=== PATIENT | female | born 1970 | race Caucasian/White ===

== ENCOUNTER → 2016-11-21 | Outpatient (REF) | payer MEDICARE ==
[~2016-11-21] MED LIST: /ACET5TA PO; /AMLO25TA PO; /INSUREG SC; /LABE20TA OR; /ONDA4TA PO; /PANT40TA PO; /PREG100CA PO; ACET500C PO; ACET65TA OR; AMLO10TAB PO; ANTI12.5 PO; ASPI81TA45 OR; ASPI81TA7 PO; ASPI81TA85 PO; ATEN100T PO; ATEN25TA OR; ATEN50TA2 PO; ATOR1TAB18 PO; AUGM875T27 PO; BACT800T OR; BIRTH CONTROL PO; CARD240C5 PO; CETI10TA PO; CETI5TA PO; CILO0.3S OU; CIPR-250 PO; CIPR25SS OR; CIPR500T89 PO; CITRPOW2 PO; CLON0.2T PO; CLON0.5T PO; CLONI1TA PO; CLOP75TA2 PO; COLA50CA PO; CYMB60CA3 PO; CYMBALTA PO; DEPA250T3 OR; DILT60TA PO; DOXY100C PO; DULO1CAP2 PO; DULO1CAP3 PO; DULO30CA PO; ESCI10TA2 PO; FEXO180T58 PO; FIORICET OR; FISH1000 PO; FLEXERIL PO; FLOXIN OTIC0.3 % OT; FOLI5CAP OR; FURO20TA2 PO; FURO40TA2 PO; GABA300C3 PO; GERITAB9 PO; GLUC1INJ IJ; GLUC1INJ2 IM; GLUC1KIT; GLUC1KIT SC; HUMA100I3 SC; HUMALOG SC; HYDR-2808 PO; HYDR-4267 PO; HYDR100T PO; HYDR10TAB PO; HYDR25TA6 OR; HYDR50TA7 PO; IMIT100T OR; IMIT100T PO; INSUH10VL SC; INSUHUMDS SC; INSULADS SC; INSULANT SC; IRON CR PO; KLON0.5T PO; LANTINJ4 SC; LEVA250T PO; LEVO200T3 PO; LEVO250T PO; LEVO25TA5 PO; LEVO25TABR PO; LEVO50TA45 PO; LEXA1TAB PO; LISI-542 PO; LISI10TA4 OR; LISI40TA OR; LISI40TAB PO; LOPR50TA PO; LUTERA PO; LYRI150C OR; LYRI150C PO; LYRI75CA OR; MAGN64TASA PO; MECL-68 PO; MECL12.575 PO; MECLAZINE; METO10TA2 OR; METO10TA2 PO; METO5TAB2 OR; MILKSUS5 PO; MIRA0.5T PO; NEUR300C PO; NORCOTAB PO; NORV5TAB PO; NOVOINJ3 SC; OMEP40CA2 PO; ONDA4TAB6 PO; PANT40TA2 PO; PERC5TAB6 PO; PERC7.5T8 PO; PLAV75TA PO; PLAV75TA2 OR; PRAM0.5T4 PO; PRAV40TA PO; PRED10TA PO; PRIL20CA PO; PROT1TAB2 PO; Pramipexole PO; REGL10TA6 PO; REGL5TAB2 PO; SENO8.6T2 PO; SILV1CRE19 TOP; SIMV20TA2 OR; SUCR1SS PO; SUMA100T2 PO; TENO50TA PO; TESS100C PO; TRAZ50TA4 PO; TRAZO50TA PO; TRIA1CR TOP; TYLE325T5 PO; TYLE650T30 PO; UNIT1TAB PO; VITAMIN C PO; ZEST20TA8 PO; ZOCO20TA PO; ZOFR20TA PO; ZOFR4SOL PO; ZOFR4TAB3 PO; ZYRT10TA2 PO; [UNRECOGNIZED DRUG - CODE] OU; [UNRECOGNIZED DRUG - CODE] TOP; [UNRECOGNIZED DRUG - OTHER] PO; [UNRECOGNIZED DRUG - OTHER] PO; humalog SC; novolog SC
[2016-11-21 20:38] LABS: YEAST LIKE CELL URINE AUTO MODERATE
== END ==
LOC: M LAB REF 16:50
PROVIDERS: ATTEND Physician Assistant
DX: N39.0 Urinary tract infection, site not specified (principal)

== ENCOUNTER 2016-12-02 15:47 | Emergency (ER) | payer MEDICARE ==
[~2016-12-02 15:47] MED LIST changes: -PLAV75TA PO; +PLAV75TA38 PO; -PRIL20CA PO; +PRIL20CA9 PO
--- NOTE | 2016-12-02 17:40 | EDDOCDS ---
Nurse's Notes [facility] Name: Kaylee Moseley Age: 46 yrs Sex: Female : 1970 Arrival Date: 12/02/2016 Time: 15:47 Bed TR8 Private MD: Antonio Carrasco Diagnosis: Acute nasopharyngitis [common cold] Presentation: 12/02 15:52 Presenting complaint: Patient states: im just really sick. Patient states she finished hs1 UTI and believes that she doesn't feel right and that the infection is still present. Patient states nauseated and uncomfortable. Adult Sepsis Screening: The patient does not have new or worsening altered mentation. Patient's respiratory rate is less than 22. Systolic blood pressure is greater than 100. Patient has a qSOFA score of 0- Negative Sepsis Screen. Suicide/Homicide risk assessment- the patient denies having any suicidal and/or homicidal ideations and does not present with any other emotional, behavioral or mental health complaints. Status: Patient is not a learning services coordinator or dependent. Transition of care: patient was not received from another setting of care. 15:52 Acuity: CHRISTIANA Level 3 hs1 15:52 Method Of Arrival: Walkin/Carried/Asstd hs1 Triage Assessment: 15:54 General: Appears in no apparent distress, Behavior is appropriate for age, cooperative. hs1 Pain: Denies pain. Location: low back area Pain currently is 0 out of 10 on a pain scale. HIV screening NA for this visit Offered previously. Neurological: Level of Consciousness is awake, alert, Oriented to person, place, time. Respiratory: No deficits noted. Derm: Skin is pink, warm & dry. normal. Historical: - Allergies: no known allergies; - Home Meds: 1. atenolol 100 mg Oral tab 1 tab once daily 2. Neurontin 300 mg Oral cap 2 caps twice a day 3. Plavix 75 mg Oral tab 1 tab once daily 4. Lantus 100 unit/mL Sub-Q soln 30 units at night 5. 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 No barriers to communication noted, The patient speaks fluent Amharic, Speaks appropriately for age. - Family history: Not pertinent. - : The pt / caregiver states he / she is not on anticoagulants. Home medication list is obtained from the patient. - Exposure Risk Screening:: None identified. Screenin:36 Screening information is obtained from the patient. Fall risk: No risks identified. js13 Assistance ADL's: requires no assistance with activities of daily living. Abuse/DV Screen: The patient / caregiver reports he/she is: not in a situation that causes fear, pain or injury. Nutritional screening: No deficits noted. Advance Directives: Currently, there is no health care proxy. home support is adequate. Assessment: 17:36 General: Appears in no apparent distress, comfortable, Behavior is appropriate for age, js13 cooperative. Pain: Denies pain. Neurological: Level of Consciousness is awake, alert. Respiratory: Airway is patent Respiratory effort is even, unlabored, Respiratory pattern is regular, symmetrical. : Urine is clear, Reports burning with urination. Derm: Skin is pink, warm & dry. Vital Signs: 15:50 BP 135 / 77; Pulse 97; Resp 18 S; Temp 99.6(O); Pulse Ox 100% on R/A; Weight 81.65 kg dd6 (R); Height 5 ft. 2 in. (157.48 cm) (R); 17:38 BP 128 / 74; Pulse 84; Resp 22; Pulse Ox 98% on R/A; Pain 0/10; ml6 15:50 Body Mass Index 32.92 (81.65 kg, 157.48 cm) dd6 Vitals: 15:50 Log In Time: December 02, 2016 at 15:48. dd6 ED Course: 15:49 Patient visited by Jarvis Oneil PCA. dd6 15:49 Antonio Carrasco DO is Private Physician. dd6 15:49 Patient moved to Waiting dd6 15:50 Patient moved to Pre RCE dd6 15:54 Triage Initiated hs1 17:07 Patient moved to Triage 3 ar3 17:09 Shon Puckett PA-C is PHCP. cc10 17:09 Daljit Lechuga MD is Attending Physician. cc10 17:10 Patient visited by Shon Puckett PA-C. cc10 17:10 Patient visited by Shon Puckett PA-C. cc10 17:26 Urine Culture Sent. ar3 17:36 The patient / caregiver is instructed regarding the plan of care and ED course. js13 17:36 No IV's were initiated during this patient's visit. No procedures done that require js13 assistance. 17:37 Patient moved to 8 ar3 Point of Care Testing: Blood Glucose: 17:19 Blood Glucose: 138 mg/dL; js13 Urine Dip: 17:35 pH: 5; ; Specific [place]: 1.015; Ketones: Negative; Glucose: Positive; Protein: js13 Positive (++); Leukocytes: Positive (++); Nitrite: Negative ; Blood: Moderate (++); Bilirubin: Negative ; Urobilinogen: Normal Ranges: Order Results: Lab Order: Fingerstick Blood Sugar; SPEC'M 12/02/16 17:18 Test: BEDSIDE GLUCOSE; Value: 138; Range: 70-105; Abnormal: Above high normal; Units: MG/DL; Status: F Outcome: 17:33 Discharge ordered by Provider. cc10 17:38 Discharge Assessment: patient administered narcotics - no. The following High Risk ml6 Discharge criteria are identified: None. Discharged to home ambulatory. Condition: stable. No special radiology studies were completed. Property sent home with patient. :Personal belongings accompany Pt. 17:39 Patient left the ED. ml6 Signatures: Jarvis Oneil, DIAMOND CLEAVER DIAMOND CLEAVER dd6 Lyle Cardoza, RN RN ml6 Lisa Singh, DIAMOND CLEAVER DIAMOND CLEAVER ar3 Kayli Benjamin RN RN hs1 Elida Figueroa RN RN js13 Shon uPckett PARose PAElvaC cc10 MTDD
--- NOTE | 2016-12-02 17:40 | EDDOCDS ---
Physician Documentation [facility] Name: Kaylee Moseley Age: 46 yrs Sex: Female : 1970 Arrival Date: 12/02/2016 Time: 15:47 Bed TR8 Private MD: Antonio Carrasco Disposition: 12/02/16 17:33 Discharged to Home/Self Care. Impression: Acute nasopharyngitis [common cold]. - Condition is Stable. - Discharge Instructions: Upper Respiratory Infection, Adult. - Prescriptions for Guaifenesin- DM 10-100 mg/5 mL Oral Liquid - take 5 milliliter by ORAL route every 4 hours As needed; 100 milliliter. - Medication Reconciliation, Local Pharmacy Hours form. - Follow up: Emergency Department; When: As needed. Follow up: Private Physician; When: Call to arrange an appointment; Reason: Wound/Symptom Recheck, Recheck today's complaints, Continuance of care. - Problem is an ongoing problem. - Symptoms are unchanged. Historical: - Allergies: no known allergies; - Home Meds: 1. atenolol 100 mg Oral tab 1 tab once daily 2. Neurontin 300 mg Oral cap 2 caps twice a day 3. Plavix 75 mg Oral tab 1 tab once daily 4. Lantus 100 unit/mL Sub-Q soln 30 units at night 5. 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 No barriers to communication noted, The patient speaks fluent Serbian, Speaks appropriately for age. - Family history: Not pertinent. - : The pt / caregiver states he / she is not on anticoagulants. Home medication list is obtained from the patient. - Exposure Risk Screening:: None identified. Vital Signs: 12/02 15:50 BP 135 / 77; Pulse 97; Resp 18 S; Temp 99.6(O); Pulse Ox 100% on R/A; Weight 81.65 kg / dd6 180.01 lbs (R); Height 5 ft. 2 in. (157.48 cm) (R); 17:38 BP 128 / 74; Pulse 84; Resp 22; Pulse Ox 98% on R/A; Pain 0/10; ml6 15:50 Body Mass Index 32.92 (81.65 kg, 157.48 cm) dd6 MDM: 17:15 Accucheck ordered. cc10 17:15 Urine Dip ordered. cc10 17:16 Urine Culture Ordered. EDMS 17:27 Fingerstick Blood Sugar Ordered. EDMS 17:29 Fingerstick Blood Sugar Reviewed. cc10 Point of Care Testing: Blood Glucose: 17:19 Blood Glucose: 138 mg/dL; js13 Urine Dip: 17:35 pH: 5; ; Specific [place]: 1.015; Ketones: Negative; Glucose: Positive; Protein: js13 Positive (++); Leukocytes: Positive (++); Nitrite: Negative ; Blood: Moderate (++); Bilirubin: Negative ; Urobilinogen: Normal Ranges: Signatures: Dispatcher [employer] Lyle Robledo, RN RN ml6 Kayli Benjamin RN RN hs1 Elida Figueroa RN RN js13 Shon Puckett PA-C PARose cc10 MTDD
--- NOTE | 2016-12-04 18:41 | EDDOCDS ---
Physician Documentation [facility] Name: Kaylee Moseley Age: 46 yrs Sex: Female : 1970 Arrival Date: 12/02/2016 Time: 15:47 Bed TR8 Private MD: Antonio Carrasco Disposition: 12/02/16 17:33 Discharged to Home/Self Care. Impression: Acute nasopharyngitis [common cold]. - Condition is Stable. - Discharge Instructions: Upper Respiratory Infection, Adult. - Prescriptions for Guaifenesin- DM 10-100 mg/5 mL Oral Liquid - take 5 milliliter by ORAL route every 4 hours As needed; 100 milliliter. - Medication Reconciliation, Local Pharmacy Hours form. - Follow up: Emergency Department; When: As needed. Follow up: Private Physician; When: Call to arrange an appointment; Reason: Wound/Symptom Recheck, Recheck today's complaints, Continuance of care. - Problem is an ongoing problem. - Symptoms are unchanged. Historical: - Allergies: no known allergies; - Home Meds: 1. atenolol 100 mg Oral tab 1 tab once daily 2. Neurontin 300 mg Oral cap 2 caps twice a day 3. Plavix 75 mg Oral tab 1 tab once daily 4. Lantus 100 unit/mL Sub-Q soln 30 units at night 5. 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 No barriers to communication noted, The patient speaks fluent Icelandic, Speaks appropriately for age. - Family history: Not pertinent. - : The pt / caregiver states he / she is not on anticoagulants. Home medication list is obtained from the patient. - Exposure Risk Screening:: None identified. Vital Signs: 12/02 15:50 BP 135 / 77; Pulse 97; Resp 18 S; Temp 99.6(O); Pulse Ox 100% on R/A; Weight 81.65 kg / dd6 180.01 lbs (R); Height 5 ft. 2 in. (157.48 cm) (R); 17:38 BP 128 / 74; Pulse 84; Resp 22; Pulse Ox 98% on R/A; Pain 0/10; ml6 15:50 Body Mass Index 32.92 (81.65 kg, 157.48 cm) dd6 MDM: 17:15 Accucheck ordered. cc10 17:15 Urine Dip ordered. cc10 17:16 Urine Culture Ordered. EDMS 17:27 Fingerstick Blood Sugar Ordered. EDMS 17:29 Fingerstick Blood Sugar Reviewed. cc10 12/03 10:39 T-Sheet-- Draft Copy was scanned into [employer] and attached to record. Point of Care Testing: Blood Glucose: 12/02 17:19 Blood Glucose: 138 mg/dL; js13 Urine Dip: 17:35 pH: 5; ; Specific [place]: 1.015; Ketones: Negative; Glucose: Positive; Protein: js13 Positive (++); Leukocytes: Positive (++); Nitrite: Negative ; Blood: Moderate (++); Bilirubin: Negative ; Urobilinogen: Normal Ranges: Signatures: Dispatcher [employer] EDMS Shereen Theodore, Reg Reg gb Lyle Cardoza, RN RN ml6 Kayli Benjamin RN RN hs1 Elida Figueroa RN RN js13 Shon Puckett PA-C PARose cc10 The chart was reviewed and I authenticate all verbal orders and agree with the evaluation and treatment provided.Attachments: 12/03 10:39 T-Sheet-- Draft Copy Chart Complete MTDD
--- NOTE | 2016-12-04 18:41 | EDDOCDS ---
Nurse's Notes [facility] Name: Kaylee Moseley Age: 46 yrs Sex: Female : 1970 Arrival Date: 12/02/2016 Time: 15:47 Bed TR8 Private MD: Antonio Carrasco Diagnosis: Acute nasopharyngitis [common cold] Presentation: 12/02 15:52 Presenting complaint: Patient states: im just really sick. Patient states she finished hs1 UTI and believes that she doesn't feel right and that the infection is still present. Patient states nauseated and uncomfortable. Adult Sepsis Screening: The patient does not have new or worsening altered mentation. Patient's respiratory rate is less than 22. Systolic blood pressure is greater than 100. Patient has a qSOFA score of 0- Negative Sepsis Screen. Suicide/Homicide risk assessment- the patient denies having any suicidal and/or homicidal ideations and does not present with any other emotional, behavioral or mental health complaints. Status: Patient is not a service learning coordinator or dependent. Transition of care: patient was not received from another setting of care. 15:52 Acuity: CHRISTIANA Level 3 hs1 15:52 Method Of Arrival: Walkin/Carried/Asstd hs1 Triage Assessment: 15:54 General: Appears in no apparent distress, Behavior is appropriate for age, cooperative. hs1 Pain: Denies pain. Location: low back area Pain currently is 0 out of 10 on a pain scale. HIV screening NA for this visit Offered previously. Neurological: Level of Consciousness is awake, alert, Oriented to person, place, time. Respiratory: No deficits noted. Derm: Skin is pink, warm & dry. normal. Historical: - Allergies: no known allergies; - Home Meds: 1. atenolol 100 mg Oral tab 1 tab once daily 2. Neurontin 300 mg Oral cap 2 caps twice a day 3. Plavix 75 mg Oral tab 1 tab once daily 4. Lantus 100 unit/mL Sub-Q soln 30 units at night 5. 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 No barriers to communication noted, The patient speaks fluent Swedish, Speaks appropriately for age. - Family history: Not pertinent. - : The pt / caregiver states he / she is not on anticoagulants. Home medication list is obtained from the patient. - Exposure Risk Screening:: None identified. Screenin:36 Screening information is obtained from the patient. Fall risk: No risks identified. js13 Assistance ADL's: requires no assistance with activities of daily living. Abuse/DV Screen: The patient / caregiver reports he/she is: not in a situation that causes fear, pain or injury. Nutritional screening: No deficits noted. Advance Directives: Currently, there is no health care proxy. home support is adequate. Assessment: 17:36 General: Appears in no apparent distress, comfortable, Behavior is appropriate for age, js13 cooperative. Pain: Denies pain. Neurological: Level of Consciousness is awake, alert. Respiratory: Airway is patent Respiratory effort is even, unlabored, Respiratory pattern is regular, symmetrical. : Urine is clear, Reports burning with urination. Derm: Skin is pink, warm & dry. Vital Signs: 15:50 BP 135 / 77; Pulse 97; Resp 18 S; Temp 99.6(O); Pulse Ox 100% on R/A; Weight 81.65 kg dd6 (R); Height 5 ft. 2 in. (157.48 cm) (R); 17:38 BP 128 / 74; Pulse 84; Resp 22; Pulse Ox 98% on R/A; Pain 0/10; ml6 15:50 Body Mass Index 32.92 (81.65 kg, 157.48 cm) dd6 Vitals: 15:50 Log In Time: December 02, 2016 at 15:48. dd6 ED Course: 15:49 Patient visited by Jarvis Oneil PCA. dd6 15:49 Antonio Carrasco DO is Private Physician. dd6 15:49 Patient moved to Waiting dd6 15:50 Patient moved to Pre RCE dd6 15:54 Triage Initiated hs1 17:07 Patient moved to Triage 3 ar3 17:09 Shon Puckett PA-C is PHCP. cc10 17:09 Daljit Lechuga MD is Attending Physician. cc10 17:10 Patient visited by Shon Puckett PA-C. cc10 17:10 Patient visited by Shon Puckett PA-C. cc10 17:26 Urine Culture Sent. ar3 17:36 The patient / caregiver is instructed regarding the plan of care and ED course. js13 17:36 No IV's were initiated during this patient's visit. No procedures done that require js13 assistance. 17:37 Patient moved to TR8 ar3 12/03 10:39 T-Sheet-- Draft Copy was scanned into [facility] and attached to record. Point of Care Testing: Blood Glucose: 12/02 17:19 Blood Glucose: 138 mg/dL; js13 Urine Dip: 17:35 pH: 5; ; Specific [place]: 1.015; Ketones: Negative; Glucose: Positive; Protein: js13 Positive (++); Leukocytes: Positive (++); Nitrite: Negative ; Blood: Moderate (++); Bilirubin: Negative ; Urobilinogen: Normal Ranges: Order Results: Lab Order: Urine Culture; SPEC'M 12/02/16 17:20 Test: URINE CULTURE; Value: <EXTERNAL COMMENT eCWMed> FULL REPORT IN LAB NOTES (eCW and [facility]).; Status: F Test: URINE CULTURE; Value: URINE CULTURE RESULT NO GROWTH CLINICAL SIGNIFICANCE 1 ORGANISM; Status: F Lab Order: Fingerstick Blood Sugar; SPEC'M 12/02/16 17:18 Test: BEDSIDE GLUCOSE; Value: 138; Range: 70-105; Abnormal: Above high normal; Units: MG/DL; Status: F Outcome: 17:33 Discharge ordered by Provider. cc10 17:38 Discharge Assessment: patient administered narcotics - no. The following High Risk ml6 Discharge criteria are identified: None. Discharged to home ambulatory. Condition: stable. No special radiology studies were completed. Property sent home with patient. :Personal belongings accompany Pt. 17:39 Patient left the ED. ml6 Signatures: Shereen Theodore, Reg Reg gb Jarvis Oneil, [employer] FIELD COORDINATOR [employer] FIELD COORDINATOR dd6 Lyle Cardoza, RN RN ml6 Lisa Singh, [employer] FIELD COORDINATOR [employer] FIELD COORDINATOR ar3 Kayli Benjamin RN RN hs1 Elida Figueroa,RN RN js13 Shon Puckett, PA-C PA-C cc10 Chart Complete MTDD
--- NOTE | 2016-12-04 18:41 | EDDOCDS ---
Physician Documentation [facility] Name: Kaylee Moseley Age: 46 yrs Sex: Female : 1970 Arrival Date: 12/02/2016 Time: 15:47 Bed TR8 Private MD: Antonio Carrasco Disposition: 12/02/16 17:33 Discharged to Home/Self Care. Impression: Acute nasopharyngitis [common cold]. - Condition is Stable. - Discharge Instructions: Upper Respiratory Infection, Adult. - Prescriptions for Guaifenesin- DM 10-100 mg/5 mL Oral Liquid - take 5 milliliter by ORAL route every 4 hours As needed; 100 milliliter. - Medication Reconciliation, Local Pharmacy Hours form. - Follow up: Emergency Department; When: As needed. Follow up: Private Physician; When: Call to arrange an appointment; Reason: Wound/Symptom Recheck, Recheck today's complaints, Continuance of care. - Problem is an ongoing problem. - Symptoms are unchanged. Historical: - Allergies: no known allergies; - Home Meds: 1. atenolol 100 mg Oral tab 1 tab once daily 2. Neurontin 300 mg Oral cap 2 caps twice a day 3. Plavix 75 mg Oral tab 1 tab once daily 4. Lantus 100 unit/mL Sub-Q soln 30 units at night 5. 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 No barriers to communication noted, The patient speaks fluent Persian, Speaks appropriately for age. - Family history: Not pertinent. - : The pt / caregiver states he / she is not on anticoagulants. Home medication list is obtained from the patient. - Exposure Risk Screening:: None identified. Vital Signs: 12/02 15:50 BP 135 / 77; Pulse 97; Resp 18 S; Temp 99.6(O); Pulse Ox 100% on R/A; Weight 81.65 kg / dd6 180.01 lbs (R); Height 5 ft. 2 in. (157.48 cm) (R); 17:38 BP 128 / 74; Pulse 84; Resp 22; Pulse Ox 98% on R/A; Pain 0/10; ml6 15:50 Body Mass Index 32.92 (81.65 kg, 157.48 cm) dd6 MDM: 17:15 Accucheck ordered. cc10 17:15 Urine Dip ordered. cc10 17:16 Urine Culture Ordered. EDMS 17:27 Fingerstick Blood Sugar Ordered. EDMS 17:29 Fingerstick Blood Sugar Reviewed. cc10 12/03 10:39 T-Sheet-- Draft Copy was scanned into [employer] and attached to record. Point of Care Testing: Blood Glucose: 12/02 17:19 Blood Glucose: 138 mg/dL; js13 Urine Dip: 17:35 pH: 5; ; Specific [place]: 1.015; Ketones: Negative; Glucose: Positive; Protein: js13 Positive (++); Leukocytes: Positive (++); Nitrite: Negative ; Blood: Moderate (++); Bilirubin: Negative ; Urobilinogen: Normal Ranges: Signatures: Dispatcher [employer] EDMS Shereen Theodore, Reg Reg gb Lyle Cardoza, RN RN ml6 Kayli Benjamin RN RN hs1 Elida Figueroa RN RN js13 Shon Puckett PA-C PARose cc10 The chart was reviewed and I authenticate all verbal orders and agree with the evaluation and treatment provided.Attachments: 12/03 10:39 T-Sheet-- Draft Copy Chart Complete MTDD
== END 2016-12-02 17:39 | disposition home or self-care (01) ==
LOC: M ED 15:47
DX: J00 Acute nasopharyngitis [common cold] (principal); I10 Essential (primary) hypertension; Z87.440 Personal history of urinary (tract) infections; Z86.73 Personal history of transient ischemic attack (TIA), and cerebral infarction without residual deficits; Z87.891 Personal history of nicotine dependence; Z79.02 Long term (current) use of antithrombotics/antiplatelets; Z79.4 Long term (current) use of insulin; Z79.899 Other long term (current) drug therapy

== ENCOUNTER → 2016-12-05 | Outpatient (REF) | payer MEDICARE ==
[2016-12-05 18:00] LABS: ALBUMIN 3.3 GM/DL (3.2-5.2); ALBUMIN/GLOBULIN RATIO 0.72 (1.00-1.93); BILIRUBIN,TOTAL 0.3 MG/DL (0.2-1.0); CALCIUM LEVEL 9.4 MG/DL (8.5-10.1); CREATININE FOR GFR 2.67 MG/DL (0.55-1.02); GLOMERULAR FILTRATION RATE 20.6 (>58); POTASSIUM SERUM 4.5 MEQ/L (3.5-5.1); TOTAL PROTEIN 7.9 GM/DL (6.4-8.2)
[2016-12-05 18:07] LABS: INR 1.01
[2016-12-05 18:37] LABS: MEAN CORPUSCULAR HGB CONC 29.6 g/dl (32.0-36.5); MEAN CORPUSCULAR VOLUME 74.3 fl (80.0-96.0); RED CELL DISTRIBUTION WIDTH 15.9 % (11.5-14.5); WHITE BLOOD COUNT 8.4 K/mm3 (4.0-10.0)
== END ==
LOC: M SFHCPLAZ 14:49
PROVIDERS: ATTEND Family Medicine
DX: Z01.818 Encounter for other preprocedural examination (principal); I10 Essential (primary) hypertension; Z79.899 Other long term (current) drug therapy; I63.9 Cerebral infarction, unspecified; E10.22 Type 1 diabetes mellitus with diabetic chronic kidney disease
CPT/HCPCS: 36415; 80053; 85027; 85610; 93005; G0463

== ENCOUNTER → 2017-01-23 | Outpatient (REF) | payer MEDICARE ==
[2017-01-23 14:44] LABS: FOLATE 6.4 NG/ML
[2017-01-23 14:48] LABS: PERCENT SATURATION 4.2 % (13.2-37.4)
== END ==
LOC: M SFHCPLAZ 13:01
DX: I63.9 Cerebral infarction, unspecified (principal); D64.9 Anemia, unspecified; E10.22 Type 1 diabetes mellitus with diabetic chronic kidney disease; R94.6 Abnormal results of thyroid function studies

== ENCOUNTER → 2017-02-13 | Outpatient (REF) | payer MEDICARE ==
[~2017-02-13] MED LIST changes: +GABA-282 PO; -GABA300C3 PO
[2017-02-18 00:06] LABS: TISSUE TRANSGLUTAMINASE IgG 3 U/mL (0-5)
== END ==
LOC: M SFHCPLAZ 14:14
PROVIDERS: ATTEND Student in an Organized Health Care Education/Training Program
DX: D50.9 Iron deficiency anemia, unspecified (principal)

== ENCOUNTER 2017-07-21 11:28 | Emergency (ER) | payer MEDICARE ==
[~2017-07-21] VITALS: Ht 157.5 cm; Wt 77.3 kg
[~2017-07-21 11:28] MED LIST changes: -ATOR1TAB18 PO; +ATOR80TA59 PO; +HYDR-3911 PO; -HYDR-4267 PO; +LEVA1TAB PO; -LEVA250T PO; +PERC5TAB12 PO; -PERC5TAB6 PO; +PLAV1TAB2 PO; -PLAV75TA38 PO; -SENO8.6T2 PO; +SENO8.6T5 PO; -SILV1CRE19 TOP; +SILV1CRE60 TOP; +TRAZ50TA11 PO; -TRAZ50TA4 PO
[2017-07-21 11:29] VITALS: BP 146/70
[2017-07-21] MEDS ORDERED: ONDANSETRON 4 MG ORAL DISINTEGRATING TAB (S0181) PO ONE (14:00)
[2017-07-21 14:54] LABS: BASO % 0.6 % (0.0-1.0); EOS # 0.2 K/mm3 (0.0-0.50); EOS % 2.8 % (0.0-3.0); LARGE UNSTAINED CELL # 0.1 K/mm3 (0.0-0.4); LARGE UNSTAINED CELL % 1.5 % (0.0-4.0); LYMPH # 1.8 K/mm3 (1.5-4.5); MEAN CORPUSCULAR HEMOGLOBIN 29.8 pg (27.0-33.0); MEAN CORPUSCULAR HGB CONC 33.3 g/dl (32.0-36.5); MEAN CORPUSCULAR VOLUME 89.6 fl (80.0-96.0); MONO # 0.3 K/mm3 (0.0-0.8); MONO % 4.6 % (0.0-5.0); NEUTROPHILS # 4.8 K/mm3 (1.8-7.7); NEUTROPHILS % 66.5 % (36.0-66.0); PLATELET COUNT, AUTOMATED 307 k/mm3 (150-450); RED CELL DISTRIBUTION WIDTH 13.9 % (11.5-14.5); WHITE BLOOD COUNT 7.3 K/mm3 (4.0-10.0)
[2017-07-21 15:05] LABS: CALCIUM LEVEL 9.4 MG/DL (8.5-10.1); CREATININE FOR GFR 1.82 MG/DL (0.55-1.02); POTASSIUM SERUM 5.1 MEQ/L (3.5-5.1)
[2017-07-23] MEDS ORDERED: KEFL500C17 PO (09:45)
== END 2017-07-21 16:28 | disposition left against medical advice (07) ==
LOC: M ED 11:28
DX: R11.0 Nausea (principal); R35.0 Frequency of micturition; I12.9 Hypertensive chronic kidney disease with stage 1 through stage 4 chronic kidney disease, or unspecified chronic kidney disease; N18.3 Chronic kidney disease, stage 3 (moderate); E11.40 Type 2 diabetes mellitus with diabetic neuropathy, unspecified; E03.9 Hypothyroidism, unspecified; E78.00 Pure hypercholesterolemia, unspecified; F33.9 Major depressive disorder, recurrent, unspecified; F41.9 Anxiety disorder, unspecified; F43.10 Post-traumatic stress disorder, unspecified; F44.4 Conversion disorder with motor symptom or deficit; Z79.4 Long term (current) use of insulin; Z79.899 Other long term (current) drug therapy; Z79.82 Long term (current) use of aspirin; Z98.890 Other specified postprocedural states

== ENCOUNTER → 2017-07-31 | Outpatient (CLI) | payer MEDICARE ==
[~2017-07-31] MED LIST changes: +KEFL500C17 PO
[2017-07-31 19:53] LABS: ALBUMIN 3.4 GM/DL (3.2-5.2); ALBUMIN/GLOBULIN RATIO 0.83 (1.00-1.93); BILIRUBIN,TOTAL 0.3 MG/DL (0.2-1.0); CALCIUM LEVEL 8.7 MG/DL (8.5-10.1); CREATININE FOR GFR 2.41 MG/DL (0.55-1.02); FREE T4 0.73 NG/DL (0.76-1.46); GLOMERULAR FILTRATION RATE 23.1 (>58); POTASSIUM SERUM 4.4 MEQ/L (3.5-5.1); TOTAL PROTEIN 7.5 GM/DL (6.4-8.2)
== END ==
LOC: M LAB 17:19
PROVIDERS: ATTEND Physician Assistant Medical
DX: E10.49 Type 1 diabetes mellitus with other diabetic neurological complication (principal)

== ENCOUNTER → 2017-08-06 | Outpatient (REF) | payer MEDICARE | LOC: M SFHCPLAZ 08:59 | PROVIDERS: ATTEND Physician Assistant Medical | DX: E78.5 Hyperlipidemia, unspecified (principal) | CPT/HCPCS: 80061; G0463 ==

== ENCOUNTER → 2017-08-29 | Outpatient (CLI) | payer MEDICARE ==
--- NOTE | 2017-08-29 09:49 | REP ---
RENAL ULTRASOUND WITH DUPLEX DOPPLER RENAL ARTERY EVALUATION: Real-time sonographic evaluation of the kidneys is performed and demonstrates both kidneys to be normal in size and echotexture, right kidney measuring 9.6 x 5.2 x 5.5 cm and left kidney 10.0 x 5.8 x 4.9 cm. There is no hydronephrosis bilaterally. There appear to be scattered vascular calcifications in the kidneys. Urinary bladder is mildly distended and grossly unremarkable. Real-time ultrasound evaluation and duplex Doppler interrogation of the renal arteries is performed bilaterally. Peak systolic velocity in the abdominal aorta at the level of the renal arteries could not be measured due to overlying bowel gas obscuring the abdominal aorta. The proximal main renal arteries are also obscured. Peak systolic velocity in the more distal right renal artery is 93 cm/s. Resistive indices are measured in the upper, middle and lower thirds of the right kidney and measure between 0.69 and 0.80. Acceleration times range between 0.034 and 0.05. Peak systolic velocity in the main left renal artery is 86 cm/s. Resistive indices left kidney range between 0.71 and 0.74. Acceleration times range between 0.038 and 0.052. IMPRESSION: No hydronephrosis bilaterally with apparent scattered vascular calcifications in both kidneys. Resistive indices are elevated in the kidney bilaterally compatible with chronic small vessel disease. The visualized main renal arteries demonstrate no definite duplex Doppler sonographic evidence of renal artery stenosis, however, the origins of both renal arteries are obscured by bowel gas. Signed by Sukhjinder Ruiz MD 09/01/2017 09:47 A
== END ==
LOC: M RAD 08:24
PROVIDERS: ATTEND Family Medicine
DX: N18.3 Chronic kidney disease, stage 3 (moderate) (principal); I67.9 Cerebrovascular disease, unspecified; M79.621 Pain in right upper arm

== ENCOUNTER → 2017-09-30 | Outpatient (CLI) | payer MEDICARE ==
--- NOTE | 2017-09-30 10:08 | REP ---
MRA RENAL ARTERIES: MRA renal arteries performed utilizing multiple pulsed sequences with MIP reconstruction images. This study is limited as the patient is claustrophobic and there was extensive motion during the exam. The patient was also unable to complete suspend respirations. Abdominal aorta is normal in caliber with no aneurysm. There is a single main renal artery bilaterally. There does appear to be a mild degree of narrowing at the origin of both of these main renal arteries on the right and left. However there does not appear to be compelling MRA evidence of significant renal artery stenosis within the limits of this exam. There is no evidence of hydronephrosis of either kidney. There is a small cyst in the mid right kidney 9 mm in diameter. A cyst in the upper pole of the left kidney measures 1.6 cm in diameter. No adenopathy or free fluid is seen in the visualized abdomen. IMPRESSION: Somewhat limited MRA exam due to factors described above. There is no compelling MR evidence for significant renal artery stenosis. Signed by Sukhjinder Ruiz MD 09/30/2017 04:57 P
== END ==
LOC: M RAD 06:46
PROVIDERS: ATTEND Physician Assistant Medical
DX: N18.3 Chronic kidney disease, stage 3 (moderate) (principal)

== ENCOUNTER → 2017-11-20 | Outpatient (REF) | payer MEDICARE ==
[2017-11-20 12:17] LABS: BASO # 0.1 10^3/uL (0.0-0.2); BASO % 0.6 % (0.0-1.0); EOS # 0.2 10^3/uL (0.0-0.50); EOS % 2.6 % (0.0-3.0); HEMATOCRIT 36.7 % (36.0-47.0); HEMOGLOBIN 11.5 g/dl (12.0-16.0); IMMATURE GRANULOCYTE % 0.5 % (0-0); LYMPH # 2.1 10^3/uL (1.5-4.5); LYMPH % 25.9 % (24.0-44.0); MEAN CORPUSCULAR HEMOGLOBIN 27.3 pg (27.0-33.0); MEAN CORPUSCULAR HGB CONC 31.3 g/dl (32.0-36.5); MEAN CORPUSCULAR VOLUME 87.2 fl (80.0-96.0); MONO # 0.6 10^3/uL (0.0-0.8); MONO % 6.9 % (0.0-5.0); NEUTROPHILS # 5.2 10^3/uL (1.8-7.7); NEUTROPHILS % 63.5 % (36.0-66.0); PLATELET COUNT, AUTOMATED 258 10^3/uL (150-450); RED BLOOD COUNT 4.21 10^6/uL (4.00-5.40); RED CELL DISTRIBUTION WIDTH 14.4 % (11.5-14.5); RETIC HEMOGLOBIN EQUIVALENT 34.1 pg (24-36); RETICULOCYTE # 65.3 10^9/L (17-77); RETICULOCYTE % 1.6 % (0.5-1.5); WHITE BLOOD COUNT 8.2 10^3/uL (4.0-10.0)
[2017-11-20 13:03] LABS: ALBUMIN 3.4 GM/DL (3.2-5.2); ALBUMIN/GLOBULIN RATIO 0.87 (1.00-1.93); ALKALINE PHOSPHATASE 110 U/L (45-117); ALT/SGPT 17 U/L (12-78); ANION GAP 10 MEQ/L (8-16); AST/SGOT 13 U/L (7-37); BILIRUBIN,TOTAL 0.4 MG/DL (0.2-1.0); BLOOD UREA NITROGEN 45 MG/DL (7-18); C REACTIVE PROTEIN QUANTITATIV 0.76 MG/DL (0.00-0.30); CALCIUM LEVEL 8.5 MG/DL (8.5-10.1); CARBON DIOXIDE LEVEL 25 MEQ/L (21-32); CHLORIDE LEVEL 103 MEQ/L (98-107); CPK CREATINE PHOSPHOKINASE 64 U/L (26-192); CREATININE FOR GFR 1.92 MG/DL (0.55-1.02); GLOMERULAR FILTRATION RATE 30.1 (>58); GLUCOSE, FASTING 262 MG/DL (70-105); POTASSIUM SERUM 4.6 MEQ/L (3.5-5.1); SODIUM LEVEL 138 MEQ/L (136-145); TOTAL PROTEIN 7.3 GM/DL (6.4-8.2)
[2017-11-20 13:04] LABS: PTH INTACT 112.4 PG/ML (14.0-72.0); TOTAL 25(OH) VITAMIN D 19.9 NG/ML (30.0-100.0); VITAMIN B12 LEVEL 521 PG/ML (247-911)
[2017-11-20 15:31] LABS: ESTIMATED AVERAGE GLUCOSE 192 MG/DL (60-110); HEMOGLOBIN A1c 8.3 %
[2017-11-22 00:09] LABS: C-PEPTIDE < 0.1 ng/mL (1.1-4.4)
[2017-11-22 00:09] LABS: ANA (HEP2) Positive (.); ANTI SCLERODERMA ANTIBODIES 4.5 AI (0.0-0.9)
[2017-11-25 10:47] LABS: DRVV SCREEN 45.2 SEC
[2017-11-25 10:50] LABS: PTT LUPUS TYPE ANTICOAG SCREEN 1.1 (0-1.2)
== END ==
LOC: M SFHCPLAZ 10:09
DX: E78.2 Mixed hyperlipidemia (principal); D50.9 Iron deficiency anemia, unspecified; E10.8 Type 1 diabetes mellitus with unspecified complications; E55.9 Vitamin D deficiency, unspecified; R76.8 Other specified abnormal immunological findings in serum; Z79.01 Long term (current) use of anticoagulants
CPT/HCPCS: 82550

== ENCOUNTER → 2017-12-15 | Outpatient (REF) | payer MEDICARE, MEDICAID | LOC: M SFHCPLAZ 10:05 | DX: R76.8 Other specified abnormal immunological findings in serum (principal); E78.2 Mixed hyperlipidemia; D50.9 Iron deficiency anemia, unspecified; I63.9 Cerebral infarction, unspecified; E03.9 Hypothyroidism, unspecified ==

== ENCOUNTER → 2017-12-16 | Outpatient (REF) | payer MEDICARE, MEDICAID ==
[2017-12-16 13:25] LABS: ALBUMIN 3.3 GM/DL (3.2-5.2); ANION GAP 11 MEQ/L (8-16); BLOOD UREA NITROGEN 45 MG/DL (7-18); CALCIUM LEVEL 8.7 MG/DL (8.5-10.1); CARBON DIOXIDE LEVEL 24 MEQ/L (21-32); CHLORIDE LEVEL 100 MEQ/L (98-107); CHOLESTEROL LEVEL 235 MG/DL (<200); CHOLESTEROL RISK RATIO 3.405 (<5); CREATININE FOR GFR 2.08 MG/DL (0.55-1.30); FREE T4 0.71 NG/DL (0.76-1.46); GLOMERULAR FILTRATION RATE 27.4 (>58); GLUCOSE, FASTING 335 MG/DL (70-100); HDL CHOLESTEROL 69 MG/DL (>40); NON-HDL-C 166 MG/DL; PHOSPHORUS LEVEL 4.3 MG/DL (2.5-4.9); SODIUM LEVEL 135 MEQ/L (136-145); TOTAL PROTEIN 7.3 GM/DL (6.4-8.2); TRIGLYCERIDES LEVEL 145 MG/DL (<150)
[2017-12-16 13:27] LABS: POTASSIUM SERUM 5.2 MEQ/L (3.5-5.1)
[2017-12-18 13:32] LABS: ALBUMIN 3.74 GM/DL (3.29-5.55); ALBUMIN % 51.3 % (55.8-66.1); ALPHA-1-GLOBULIN % 3.7 % (2.9-4.9); ALPHA-1-GLOBULINS 0.27 GM/DL (0.17-0.41); ALPHA-2-GLOBULINS 1.02 GM/DL (0.42-0.99); BETA-1-GLOBULINS 0.53 GM/DL (0.28-0.60); BETA-1-GLOBULINS % 7.2 % (4.7-7.2); BETA-2-GLOBULINS 0.43 GM/DL (0.19-0.55); BETA-2-GLOBULINS % 5.9 % (3.2-6.5); GAMMA GLOBULIN % 17.9 % (11.1-18.8); GAMMA GLOBULINS 1.31 GM/DL (0.65-1.58)
[2017-12-19 00:06] LABS: CYCLIC CITRULLINATED PEPTIDE 5 units (0-19)
== END ==
LOC: M SFHCPLAZ 09:31
DX: Z01.818 Encounter for other preprocedural examination (principal); R76.8 Other specified abnormal immunological findings in serum; E78.2 Mixed hyperlipidemia; D50.9 Iron deficiency anemia, unspecified; I63.9 Cerebral infarction, unspecified; E03.9 Hypothyroidism, unspecified
CPT/HCPCS: 83735

== ENCOUNTER 2017-12-24 08:30 | Day surgery (SDC) | payer MEDICARE ==
[~2017-12-24 08:30] MED LIST changes: -/ACET5TA PO; -/AMLO25TA PO; -/INSUREG SC; -/LABE20TA OR; -/ONDA4TA PO; -/PANT40TA PO; -/PREG100CA PO; -ACET500C PO; -ACET65TA OR; +ACETAMINOPHEN 325 MG TAB PO; -AMLO10TAB PO; -ANTI12.5 PO; -ASPI81TA45 OR; -ASPI81TA7 PO; -ASPI81TA85 PO; -ATEN100T PO; -ATEN25TA OR; -ATEN50TA2 PO; -ATOR80TA59 PO; -AUGM875T27 PO; -BACT800T OR; -BIRTH CONTROL PO; -CARD240C5 PO; -CETI10TA PO; -CETI5TA PO; -CILO0.3S OU; -CIPR-250 PO; -CIPR25SS OR; -CIPR500T89 PO; -CITRPOW2 PO; -CLON0.2T PO; -CLON0.5T PO; -CLONI1TA PO; -CLOP75TA2 PO; -COLA50CA PO; +CYCLOPENTOLATE 2% OPHTH SOLN 2ML BTL OD; -CYMB60CA3 PO; -CYMBALTA PO; -DEPA250T3 OR; -DILT60TA PO; -DOXY100C PO; -DULO1CAP2 PO; -DULO1CAP3 PO; -DULO30CA PO; -ESCI10TA2 PO; -FEXO180T58 PO; -FIORICET OR; -FISH1000 PO; -FLEXERIL PO; -FLOXIN OTIC0.3 % OT; -FOLI5CAP OR; -FURO20TA2 PO; -FURO40TA2 PO; -GABA-282 PO; -GERITAB9 PO; -GLUC1INJ IJ; -GLUC1INJ2 IM; -GLUC1KIT; -GLUC1KIT SC; -HUMA100I3 SC; -HUMALOG SC; -HYDR-2808 PO; -HYDR-3911 PO; -HYDR100T PO; -HYDR10TAB PO; -HYDR25TA6 OR; -HYDR50TA7 PO; -IMIT100T OR; -IMIT100T PO; -INSUH10VL SC; -INSUHUMDS SC; -INSULADS SC; -INSULANT SC; -IRON CR PO; -KEFL500C17 PO; -KLON0.5T PO; -LANTINJ4 SC; -LEVA1TAB PO; -LEVO200T3 PO; -LEVO250T PO; -LEVO25TA5 PO; -LEVO25TABR PO; -LEVO50TA45 PO; -LEXA1TAB PO; +LIDOCAINE 3.5 % 1ML OPHTH TOPICAL GEL OU; -LISI-542 PO; -LISI10TA4 OR; -LISI40TA OR; -LISI40TAB PO; -LOPR50TA PO; -LUTERA PO; -LYRI150C OR; -LYRI150C PO; -LYRI75CA OR; -MAGN64TASA PO; -MECL-68 PO; -MECL12.575 PO; -MECLAZINE; -METO10TA2 OR; -METO10TA2 PO; -METO5TAB2 OR; -MILKSUS5 PO; -MIRA0.5T PO; -NEUR300C PO; -NORCOTAB PO; -NORV5TAB PO; -NOVOINJ3 SC; +OFLOXACIN 0.3 % (OCUFLOX) OPTH SOL 5ML OD; -OMEP40CA2 PO; -ONDA4TAB6 PO; -PANT40TA2 PO; -PERC5TAB12 PO; -PERC7.5T8 PO; +PHENYLEPHRINE 2.5% OPHTH SOL 2ML OD; +PHENYLEPHRINE HCL 10 % OPHTH. SOL 5ML OD; -PLAV1TAB2 PO; -PLAV75TA2 OR; -PRAM0.5T4 PO; -PRAV40TA PO; -PRED10TA PO; -PRIL20CA9 PO; +PROPARACAINE 0.5% OPHTH SOL 15ML OD; -PROT1TAB2 PO; -Pramipexole PO; -REGL10TA6 PO; -REGL5TAB2 PO; -SENO8.6T5 PO; -SILV1CRE60 TOP; -SIMV20TA2 OR; -SUCR1SS PO; -SUMA100T2 PO; -TENO50TA PO; -TESS100C PO; -TRAZ50TA11 PO; -TRAZO50TA PO; -TRIA1CR TOP; +TROPICAMIDE 1% OPHTH SOLN 2ML OD; -TYLE325T5 PO; -TYLE650T30 PO; -UNIT1TAB PO; -VITAMIN C PO; -ZEST20TA8 PO; -ZOCO20TA PO; -ZOFR20TA PO; -ZOFR4SOL PO; -ZOFR4TAB3 PO; -ZYRT10TA2 PO; -[UNRECOGNIZED DRUG - CODE] OU; -[UNRECOGNIZED DRUG - CODE] TOP; -[UNRECOGNIZED DRUG - OTHER] PO; -[UNRECOGNIZED DRUG - OTHER] PO; -humalog SC; -novolog SC
[2017-12-24] MEDS ORDERED: fentaNYL 100 MCG/2 ML INJECTION (J3010) As Ordered (10:26)
[2017-12-24] MEDS ORDERED: MIDAZOLAM INJ 2 MG/2 ML VIAL (J2250) As Ordered (10:26)
[2017-12-24] MEDS: LIDOCAINE 1% SDV 5 ML VIAL As Ordered (10:30)
[2017-12-24] MEDS: ACETYLCHOLINE OPHTH SOLN 1% 2ML (MIOCHOL-E) As Ordered (10:30)
[2017-12-24] MEDS: BALANCED SALT IRRIGATION SOLUTION 500ML BAG (FOR OR EYE MACHINE) As Ordered (10:30)
[2017-12-24] MEDS: HEALON DUET (HEALON 10MG/ML 0.55ML & HEALON ENDOCOAT 30MG/ML 0.85ML) As Ordered (10:30)
[2017-12-24] MEDS: POVIDONE-IODINE 5% OPHTH PREP SOL 30ML As Ordered (10:30)
[2017-12-24] MEDS: CEFUROXIME 1MG/0.1ML INTRACAMERAL INJ As Ordered (10:30)
[2017-12-24 10:58] LABS: BEDSIDE GLUCOSE 140 MG/DL (70-105)
[2017-12-24] MEDS ORDERED: AcetaZOLAMIDE 500 MG ER CAP As Ordered (11:14)
[2017-12-24] MEDS: KETOROLAC 0.5% OPHTH SOLN OD (11:20)
[2017-12-24] MEDS: AcetaZOLAMIDE 500 MG ER CAP PO (11:20)
[2017-12-24] MEDS ORDERED: TRIMETHOBENZAMIDE 300 MG CAP PO (11:30)
== END 2017-12-24 11:27 | disposition home or self-care (01) ==
LOC: M SDC 08:30
DX: H25.11 Age-related nuclear cataract, right eye (principal); H21.561 Pupillary abnormality, right eye; E10.9 Type 1 diabetes mellitus without complications; Z79.4 Long term (current) use of insulin; Z79.82 Long term (current) use of aspirin; Z79.01 Long term (current) use of anticoagulants; Z79.899 Other long term (current) drug therapy; E78.5 Hyperlipidemia, unspecified; I10 Essential (primary) hypertension; E03.9 Hypothyroidism, unspecified
CPT/HCPCS: 66982

== ENCOUNTER 2018-01-14 10:22 | Emergency (ER) | payer MEDICARE, MEDICAID ==
[2018-01-14] MEDS: ATENOLOL 50 MG TAB PO (11:31)
[2018-01-14] MEDS: KETOROLAC 30 MG/ML VIAL (J1885) IM (11:32)
== END 2018-01-14 12:36 | disposition home or self-care (01) ==
LOC: M ED 10:22
DX: I10 Essential (primary) hypertension (principal); R51 Headache; E11.40 Type 2 diabetes mellitus with diabetic neuropathy, unspecified; F43.10 Post-traumatic stress disorder, unspecified; F44.4 Conversion disorder with motor symptom or deficit; F41.9 Anxiety disorder, unspecified; F32.9 Major depressive disorder, single episode, unspecified; Z86.73 Personal history of transient ischemic attack (TIA), and cerebral infarction without residual deficits; N18.3 Chronic kidney disease, stage 3 (moderate); K31.84 Gastroparesis; Z98.61 Coronary angioplasty status; Z79.82 Long term (current) use of aspirin; Z79.4 Long term (current) use of insulin; Z79.899 Other long term (current) drug therapy
CPT/HCPCS: J1885

== ENCOUNTER → 2018-01-21 | Outpatient (REF) | payer MEDICARE, MEDICAID ==
[2018-01-21 11:33] LABS: BASO # 0.1 10^3/uL (0.0-0.2); BASO % 0.7 % (0.0-1.0); EOS # 0.2 10^3/uL (0.0-0.50); EOS % 3.6 % (0.0-3.0); HEMATOCRIT 37.4 % (36.0-47.0); HEMOGLOBIN 11.8 g/dl (12.0-16.0); LYMPH # 1.9 10^3/uL (1.5-4.5); LYMPH % 28.4 % (24.0-44.0); MEAN CORPUSCULAR HEMOGLOBIN 27.6 pg (27.0-33.0); MEAN CORPUSCULAR HGB CONC 31.6 g/dl (32.0-36.5); MEAN CORPUSCULAR VOLUME 87.6 fl (80.0-96.0); MONO # 0.6 10^3/uL (0.0-0.8); MONO % 8.7 % (0.0-5.0); NEUTROPHILS # 3.9 10^3/uL (1.8-7.7); NEUTROPHILS % 57.6 % (36.0-66.0); PLATELET COUNT, AUTOMATED 253 10^3/uL (150-450); RED BLOOD COUNT 4.27 10^6/uL (4.00-5.40); RED CELL DISTRIBUTION WIDTH 14.3 % (11.5-14.5); WHITE BLOOD COUNT 6.7 10^3/uL (4.0-10.0)
[2018-01-21 11:52] LABS: ALBUMIN 3.4 GM/DL (3.2-5.2); ALBUMIN/GLOBULIN RATIO 0.87 (1.00-1.93); ALKALINE PHOSPHATASE 128 U/L (45-117); ALT/SGPT 30 U/L (12-78); ANION GAP 5 MEQ/L (8-16); AST/SGOT 23 U/L (7-37); BILIRUBIN,TOTAL 0.4 MG/DL (0.2-1.0); BLOOD UREA NITROGEN 44 MG/DL (7-18); CALCIUM LEVEL 9.1 MG/DL (8.5-10.1); CARBON DIOXIDE LEVEL 32 MEQ/L (21-32); CHLORIDE LEVEL 101 MEQ/L (98-107); CREATININE FOR GFR 2.23 MG/DL (0.55-1.30); GLOMERULAR FILTRATION RATE 25.3 (>58); GLUCOSE, FASTING 128 MG/DL (70-100); POTASSIUM SERUM 5.1 MEQ/L (3.5-5.1); SODIUM LEVEL 138 MEQ/L (136-145); TOTAL PROTEIN 7.3 GM/DL (6.4-8.2)
== END ==
LOC: M SFHCPLAZ 09:12
DX: N18.3 Chronic kidney disease, stage 3 (moderate) (principal); E10.8 Type 1 diabetes mellitus with unspecified complications
CPT/HCPCS: 80053

== ENCOUNTER 2018-01-28 07:29 | Day surgery (SDC) | payer MEDICARE, MEDICAID ==
[~2018-01-28 07:29] MED LIST changes: -CYCLOPENTOLATE 2% OPHTH SOLN 2ML BTL OD; -LIDOCAINE 3.5 % 1ML OPHTH TOPICAL GEL OU; -OFLOXACIN 0.3 % (OCUFLOX) OPTH SOL 5ML OD; -PHENYLEPHRINE 2.5% OPHTH SOL 2ML OD; -PHENYLEPHRINE HCL 10 % OPHTH. SOL 5ML OD; +PHENYLEPHRINE HCL 10 % OPHTH. SOL 5ML OS; -PROPARACAINE 0.5% OPHTH SOL 15ML OD; +PROPARACAINE 0.5% OPHTH SOL 15ML OS; -TROPICAMIDE 1% OPHTH SOLN 2ML OD
[2018-01-28] MEDS ORDERED: fentaNYL 100 MCG/2 ML INJECTION (J3010) As Ordered (07:35)
[2018-01-28] MEDS ORDERED: MIDAZOLAM INJ 2 MG/2 ML VIAL (J2250) As Ordered (07:36)
[2018-01-28] MEDS ORDERED: LR 1,000 ML IV (07:45)
[2018-01-28] MEDS ORDERED: OFLOXACIN 0.3 % (OCUFLOX) OPTH SOL 5ML As Ordered (08:07)
[2018-01-28] MEDS ORDERED: PHENYLEPHRINE 2.5% OPHTH SOL 2ML As Ordered (08:07)
[2018-01-28] MEDS ORDERED: TROPICAMIDE 1% OPHTH SOLN 2ML As Ordered (08:07)
[2018-01-28] MEDS ORDERED: CYCLOPENTOLATE 2% OPHTH SOLN 2ML BTL As Ordered (08:07)
[2018-01-28] MEDS: CYCLOPENTOLATE 2% OPHTH SOLN 2ML BTL OS (08:15)
[2018-01-28] MEDS: TROPICAMIDE 1% OPHTH SOLN 2ML OS (08:16)
[2018-01-28] MEDS: LIDOCAINE 3.5 % 1ML OPHTH TOPICAL GEL OU (08:16)
[2018-01-28] MEDS: PHENYLEPHRINE 2.5% OPHTH SOL 2ML OS (08:16)
[2018-01-28] MEDS: OFLOXACIN 0.3 % (OCUFLOX) OPTH SOL 5ML OS (08:16)
[2018-01-28 08:17] LABS: CONTROL LINE UCG INT CTR LINE PRESENT; URINE PREG TEST NEGATIVE (NEGATIVE)
[2018-01-28 08:29] LABS: BEDSIDE GLUCOSE 89 MG/DL (70-105)
[2018-01-28] MEDS: POVIDONE-IODINE 5% OPHTH PREP SOL 30ML As Ordered (08:55)
[2018-01-28] MEDS: BALANCED SALT IRRIGATION SOLUTION 500ML BAG (FOR OR EYE MACHINE) As Ordered (09:00)
[2018-01-28] MEDS: LIDOCAINE 1% SDV 5 ML VIAL As Ordered (09:00)
[2018-01-28] MEDS: HEALON DUET (HEALON 10MG/ML 0.55ML & HEALON ENDOCOAT 30MG/ML 0.85ML) As Ordered ×2 (09:02→09:11)
[2018-01-28] MEDS ORDERED: LABETALOL HCL 100 MG/20 ML VIAL As Ordered (09:10)
[2018-01-28] MEDS: CEFUROXIME 1MG/0.1ML INTRACAMERAL INJ As Ordered (09:11)
[2018-01-28] MEDS: ACETYLCHOLINE OPHTH SOLN 1% 2ML (MIOCHOL-E) As Ordered (09:15)
[2018-01-28] MEDS: AcetaZOLAMIDE 500 MG ER CAP PO (09:45)
[2018-01-28] MEDS ORDERED: TRIMETHOBENZAMIDE 300 MG CAP PO (09:45)
[2018-01-28] MEDS: KETOROLAC 0.5% OPHTH SOLN OS (09:45)
== END 2018-01-28 10:06 | disposition home or self-care (01) ==
LOC: M SDC 07:29
DX: H25.12 Age-related nuclear cataract, left eye (principal); H57.03 Miosis; I25.10 Atherosclerotic heart disease of native coronary artery without angina pectoris; I10 Essential (primary) hypertension; E78.5 Hyperlipidemia, unspecified; E10.9 Type 1 diabetes mellitus without complications; E03.9 Hypothyroidism, unspecified; Z79.4 Long term (current) use of insulin; Z79.02 Long term (current) use of antithrombotics/antiplatelets; Z79.82 Long term (current) use of aspirin; Z79.899 Other long term (current) drug therapy; N18.3 Chronic kidney disease, stage 3 (moderate); F32.9 Major depressive disorder, single episode, unspecified; F41.9 Anxiety disorder, unspecified; Z87.891 Personal history of nicotine dependence
CPT/HCPCS: 66982

== ENCOUNTER 2018-02-22 09:22 | Emergency (ER) | payer MEDICARE, MEDICAID ==
[2018-02-22 10:05] LABS: BEDSIDE GLUCOSE 361 MG/DL (70-105)
[2018-02-22 10:06] LABS: BASO # 0.1 10^3/uL (0.0-0.2); BASO % 0.5 % (0.0-1.0); EOS # 0.1 10^3/uL (0.0-0.50); EOS % 0.6 % (0.0-3.0); HEMATOCRIT 36.8 % (36.0-47.0); IMMATURE GRANULOCYTE % 0.3 % (0-3.0); LYMPH # 1.1 10^3/uL (1.5-4.5); LYMPH % 10.1 % (24.0-44.0); MEAN CORPUSCULAR HEMOGLOBIN 27.6 pg (27.0-33.0); MEAN CORPUSCULAR HGB CONC 32.6 g/dl (32.0-36.5); MEAN CORPUSCULAR VOLUME 84.8 fl (80.0-96.0); MONO # 0.5 10^3/uL (0.0-0.8); MONO % 4.2 % (0.0-5.0); NEUTROPHILS # 9.2 10^3/uL (1.8-7.7); NEUTROPHILS % 84.3 % (36.0-66.0); PLATELET COUNT, AUTOMATED 319 10^3/uL (150-450); RED BLOOD COUNT 4.34 10^6/uL (4.00-5.40); RED CELL DISTRIBUTION WIDTH 14.1 % (11.5-14.5); WHITE BLOOD COUNT 10.9 10^3/uL (4.0-10.0)
[2018-02-22] MEDS: diphenhydrAMINE INJ 50MG/ML VIAL (J1200) IV (10:13)
[2018-02-22] MEDS: NS 1,000 ML IV ×2 (10:13→12:30)
[2018-02-22] MEDS: ONDANSETRON 4MG/2ML VIAL (J2405) IV (10:13)
[2018-02-22] MEDS: MORPHINE 4 MG/ML 1ML VIAL/SYRINGE (J2270) IV (10:14)
[2018-02-22 10:17] LABS: VENOUS HCO3 22.5 MEQ/L (23.0-27.0); VENOUS O2 SATURATION 82.9 % (60.0-80.0); VENOUS PARTIAL PRESSURE CO2 33.8 mmHg (38.0-50.0); VENOUS PH 7.441 UNITS (7.330-7.430); VENOUS STANDARD HCO3 23.3 MEQ/L; VENOUS TOTAL CO2 23.5 MEQ/L (24.0-28.0)
[2018-02-22 10:37] LABS: INR 1.03; PROTHROMBIN TIME 13.6 SECONDS (12.4-14.5)
[2018-02-22 10:45] LABS: ALBUMIN 3.6 GM/DL (3.2-5.2); ALBUMIN/GLOBULIN RATIO 0.73 (1.00-1.93); ALKALINE PHOSPHATASE 118 U/L (45-117); ALT/SGPT 23 U/L (12-78); ANION GAP 10 MEQ/L (8-16); AST/SGOT 17 U/L (7-37); BILIRUBIN,DIRECT 0.1 MG/DL (0.0-0.2); BILIRUBIN,TOTAL 0.6 MG/DL (0.2-1.0); BLOOD UREA NITROGEN 30 MG/DL (7-18); CALCIUM LEVEL 8.9 MG/DL (8.5-10.1); CARBON DIOXIDE LEVEL 23 MEQ/L (21-32); CHLORIDE LEVEL 107 MEQ/L (98-107); CPK CREATINE PHOSPHOKINASE 79 U/L (26-192); CREATININE FOR GFR 2.23 MG/DL (0.55-1.30); GLOMERULAR FILTRATION RATE 25.3 (>58); GLUCOSE, FASTING 366 MG/DL (70-100); LIPASE 109 U/L (73-393); MAGNESIUM LEVEL 2.3 MG/DL (1.8-2.4); PHOSPHORUS LEVEL 1.5 MG/DL (2.5-4.9); SODIUM LEVEL 140 MEQ/L (136-145); TOTAL PROTEIN 8.5 GM/DL (6.4-8.2); TROPONIN I < 0.02 NG/ML (< 0.10)
[2018-02-22 10:46] LABS: CK-MB VALUE MASS < 1.0 NG/ML (<3.6); ESTIMATED AVERAGE GLUCOSE 209 MG/DL (60-110); HEMOGLOBIN A1c 8.9 %; MB/CK RELATIVE INDEX 1.26 (< OR =4)
[2018-02-22 10:49] LABS: OSMOLALITY SERUM 316 MOSM/KG (275-295)
[2018-02-22 10:49] LABS: LACTIC ACID SEPSIS PROTOCOL 2.3 MMOL/L (0.4-2.0)
[2018-02-22 10:58] LABS: ACETONE/KETONE 18.63 MG/DL (<2.81)
[2018-02-22 11:49] LABS: CONTROL LINE UCG INT CTR LINE PRESENT; URINE PREG TEST NEGATIVE (NEGATIVE)
[2018-02-22 12:05] LABS: KETONE, URINE AUTO RFX 1+ mg/dL (NEGATIVE); LEUKOCYTE ESTERASE UR AUTO RFX TRACE (NEGATIVE); NITRITE, URINE AUTO RFX NEGATIVE (NEGATIVE); RBC, URINE AUTO RFX TNTC /HPF (0-3); SPECIFIC GRAVITY UR AUTO RFX 1.013 (1.002-1.035); SQUAM EPITHELIAL CELL UR AURFX 3 /HPF (0-6); WBC, URINE AUTO RFX 89 /HPF (0-3)
[2018-02-22] MEDS: ATENOLOL 50 MG TAB PO (13:55)
== END 2018-02-22 14:39 | disposition home or self-care (01) ==
LOC: M ED 09:22
DX: N30.00 Acute cystitis without hematuria (principal); E86.0 Dehydration; E11.9 Type 2 diabetes mellitus without complications; N18.3 Chronic kidney disease, stage 3 (moderate); I12.9 Hypertensive chronic kidney disease with stage 1 through stage 4 chronic kidney disease, or unspecified chronic kidney disease; E03.9 Hypothyroidism, unspecified; G62.9 Polyneuropathy, unspecified; F43.10 Post-traumatic stress disorder, unspecified; F33.9 Major depressive disorder, recurrent, unspecified; F41.9 Anxiety disorder, unspecified; F44.9 Dissociative and conversion disorder, unspecified; E78.5 Hyperlipidemia, unspecified; Z79.4 Long term (current) use of insulin; Z79.890 Hormone replacement therapy; Z79.01 Long term (current) use of anticoagulants; Z79.82 Long term (current) use of aspirin; Z79.899 Other long term (current) drug therapy; Z87.891 Personal history of nicotine dependence; Z86.2 Personal history of diseases of the blood and blood-forming organs and certain disorders involving the immune mechanism; Z86.73 Personal history of transient ischemic attack (TIA), and cerebral infarction without residual deficits; Z87.19 Personal history of other diseases of the digestive system; Z86.69 Personal history of other diseases of the nervous system and sense organs

== ENCOUNTER 2018-02-23 06:13 | Inpatient (IN) | payer MEDICARE, MEDICAID ==
[2018-02-23] MEDS: LEVOTHYROXINE 75MCG TABLET (0.075MG) PO (06:00)
[2018-02-23] MEDS: NS 1,000 ML IV ×4 (06:30→14:21)
[2018-02-23] MEDS: ONDANSETRON 4MG/2ML VIAL (J2405) IV (06:44)
[2018-02-23 06:45] LABS: BASO % 0.3 % (0.0-1.0); EOS % 0.3 % (0.0-3.0); HEMATOCRIT 37.9 % (36.0-47.0); HEMOGLOBIN 12.1 g/dl (12.0-15.5); IMMATURE GRANULOCYTE % 0.3 % (0-3.0); LYMPH # 0.9 10^3/uL (1.5-4.5); LYMPH % 7.9 % (24.0-44.0); MEAN CORPUSCULAR HEMOGLOBIN 27.4 pg (27.0-33.0); MEAN CORPUSCULAR HGB CONC 31.9 g/dl (32.0-36.5); MEAN CORPUSCULAR VOLUME 85.7 fl (80.0-96.0); MONO # 0.4 10^3/uL (0.0-0.8); MONO % 3.1 % (0.0-5.0); NEUTROPHILS # 10.2 10^3/uL (1.8-7.7); NEUTROPHILS % 88.1 % (36.0-66.0); PLATELET COUNT, AUTOMATED 328 10^3/uL (150-450); RED BLOOD COUNT 4.42 10^6/uL (4.00-5.40); RED CELL DISTRIBUTION WIDTH 14.2 % (11.5-14.5); WHITE BLOOD COUNT 11.6 10^3/uL (4.0-10.0)
[2018-02-23 06:46] LABS: VENOUS BASE EXCESS -3.6 (-2.0-2.0); VENOUS HCO3 18.2 MEQ/L (23.0-27.0); VENOUS O2 SATURATION 88.5 % (60.0-80.0); VENOUS PARTIAL PRESSURE CO2 24.9 mmHg (38.0-50.0); VENOUS PARTIAL PRESSURE O2 50.9 mmHg (30.0-50.0); VENOUS PH 7.482 UNITS (7.330-7.430); VENOUS STANDARD HCO3 21.3 MEQ/L
[2018-02-23 07:04] LABS: OSMOLALITY SERUM 323 MOSM/KG (275-295)
[2018-02-23 07:10] LABS: ACETONE/KETONE 29.69 MG/DL (<2.81); ALBUMIN 3.5 GM/DL (3.2-5.2); ALBUMIN/GLOBULIN RATIO 0.74 (1.00-1.93); ALKALINE PHOSPHATASE 113 U/L (45-117); ALT/SGPT 19 U/L (12-78); ANION GAP 11 MEQ/L (8-16); AST/SGOT 18 U/L (7-37); BILIRUBIN,DIRECT 0.1 MG/DL (0.0-0.2); BILIRUBIN,TOTAL 0.6 MG/DL (0.2-1.0); BLOOD UREA NITROGEN 30 MG/DL (7-18); CALCIUM LEVEL 9.3 MG/DL (8.5-10.1); CARBON DIOXIDE LEVEL 20 MEQ/L (21-32); CHLORIDE LEVEL 109 MEQ/L (98-107); CREATININE FOR GFR 2.39 MG/DL (0.55-1.30); GLOMERULAR FILTRATION RATE 23.4 (>58); LIPASE 72 U/L (73-393); POTASSIUM SERUM 4.3 MEQ/L (3.5-5.1); SODIUM LEVEL 140 MEQ/L (136-145); TOTAL PROTEIN 8.2 GM/DL (6.4-8.2)
[2018-02-23 07:16] LABS: GLUCOSE, FASTING 435 MG/DL (70-100)
[2018-02-23 07:16] LABS: LACTIC ACID SEPSIS PROTOCOL 2.3 MMOL/L (0.4-2.0)
[2018-02-23] MEDS ORDERED: INSULIN IV RATE CHANGE DOCUMENTATION ML/HR XX (07:30)
[2018-02-23] MEDS ORDERED: INSULIN HUMAN REGULAR 100 UNITS in NS 99 ML IV (07:30)
[2018-02-23] MEDS: cefTRIAXone SOD 1 GM in D5W MINI-BAG PLUS 50 ML IV (08:18)
[2018-02-23] MEDS: PROMETHAZINE 25 MG TAB PO (09:17)
[2018-02-23] MEDS: INSULIN HUMAN REGULAR 100 UNITS in NS 99 ML IV (09:25)
[2018-02-23] MEDS: CARVedilol 12.5 MG TAB PO (09:58)
[2018-02-23 12:58] LABS: BEDSIDE GLUCOSE 270 MG/DL (70-105)
[2018-02-23 12:58] LABS: BEDSIDE GLUCOSE 358 MG/DL (70-105)
[2018-02-23 12:58] LABS: BEDSIDE GLUCOSE 407 MG/DL (70-105)
[2018-02-23 14:27] LABS: BEDSIDE GLUCOSE 176 MG/DL (70-105)
[2018-02-23] MEDS ORDERED: ACETAMINOPHEN 500 MG TAB PO (15:45)
[2018-02-23] MEDS ORDERED: ONDANSETRON 4MG/2ML VIAL (J2405) IV (15:45)
[2018-02-23] MEDS ORDERED: GLUCAGON FOR INJ 1 MG VIAL (J1610) SC (16:00)
[2018-02-23] MEDS ORDERED: DEXTROSE 50% 50 ML SYRINGE IV (16:00)
[2018-02-23] MEDS ORDERED: GLUCOSE 4 GM CHEW TABLET PO (16:00)
[2018-02-23] MEDS: HumaLOG INSULIN (NovoLOG) PER UNIT SC ×2 (17:30→20:56)
[2018-02-23] MEDS: NYSTATIN 500,000 U/5 ML SUSP UDC SS ×2 (18:00→23:18)
[2018-02-23] MEDS: CLOPIDOGREL 75 MG TAB PO (18:58)
[2018-02-23] MEDS: ASPIRIN 81 MG ENTERIC TAB PO (18:58)
[2018-02-23] MEDS: CitaloPRAM (CeleXA) 20 MG TAB PO (18:58)
[2018-02-23 20:44] LABS: BEDSIDE GLUCOSE 176 MG/DL (70-105)
[2018-02-23] MEDS: ROSUVASTATIN 10 MG TAB (CRESTOR) PO (20:55)
[2018-02-23] MEDS: MECLIZINE 12.5 MG TAB PO (20:55)
[2018-02-23] MEDS: LEVEMIR (INSULIN DETEMIR) 1 UNITS/0.01ML SC (20:55)
[2018-02-23 21:30] LABS: BEDSIDE GLUCOSE 317 MG/DL (70-105)
[2018-02-24] MEDS: LEVOTHYROXINE 75MCG TABLET (0.075MG) PO (05:28)
[2018-02-24] MEDS: NS 0.45% 1,000 ML IV ×2 (05:28→05:40)
[2018-02-24] MEDS: NYSTATIN 500,000 U/5 ML SUSP UDC SS ×4 (05:28→23:14)
[2018-02-24 06:09] LABS: BASO # 0.1 10^3/uL (0.0-0.2); BASO % 0.6 % (0.0-1.0); EOS # 0.2 10^3/uL (0.0-0.50); EOS % 1.5 % (0.0-3.0); IMMATURE GRANULOCYTE % 0.3 % (0-3.0); LYMPH # 3.2 10^3/uL (1.5-4.5); LYMPH % 29.6 % (24.0-44.0); MEAN CORPUSCULAR HEMOGLOBIN 27.9 pg (27.0-33.0); MEAN CORPUSCULAR HGB CONC 32.1 g/dl (32.0-36.5); MEAN CORPUSCULAR VOLUME 87.1 fl (80.0-96.0); MONO # 0.9 10^3/uL (0.0-0.8); MONO % 8.5 % (0.0-5.0); NEUTROPHILS # 6.5 10^3/uL (1.8-7.7); NEUTROPHILS % 59.5 % (36.0-66.0); PLATELET COUNT, AUTOMATED 274 10^3/uL (150-450); RED BLOOD COUNT 3.33 10^6/uL (4.00-5.40); RED CELL DISTRIBUTION WIDTH 14.6 % (11.5-14.5); WHITE BLOOD COUNT 10.9 10^3/uL (4.0-10.0)
[2018-02-24 06:16] LABS: HEMOGLOBIN 9.3 g/dl (12.0-15.5)
[2018-02-24 06:27] LABS: ALBUMIN 2.6 GM/DL (3.2-5.2); ALKALINE PHOSPHATASE 83 U/L (45-117); ALT/SGPT 12 U/L (12-78); ANION GAP 8 MEQ/L (8-16); AST/SGOT 16 U/L (7-37); BILIRUBIN,TOTAL 0.3 MG/DL (0.2-1.0); BLOOD UREA NITROGEN 30 MG/DL (7-18); CARBON DIOXIDE LEVEL 21 MEQ/L (21-32); CHLORIDE LEVEL 115 MEQ/L (98-107); CREATININE FOR GFR 2.28 MG/DL (0.55-1.30); GLOMERULAR FILTRATION RATE 24.7 (>58); GLUCOSE, FASTING 97 MG/DL (70-100); POTASSIUM SERUM 3.4 MEQ/L (3.5-5.1); SODIUM LEVEL 144 MEQ/L (136-145); TOTAL PROTEIN 6.3 GM/DL (6.4-8.2)
[2018-02-24] MEDS: HumaLOG INSULIN (NovoLOG) PER UNIT SC ×4 (07:35→20:39)
[2018-02-24] MEDS: CitaloPRAM (CeleXA) 20 MG TAB PO (09:18)
[2018-02-24] MEDS: CLOPIDOGREL 75 MG TAB PO (09:18)
[2018-02-24] MEDS: ASPIRIN 81 MG ENTERIC TAB PO (09:18)
[2018-02-24] MEDS: MECLIZINE 12.5 MG TAB PO (09:18)
[2018-02-24] MEDS: LEVEMIR (INSULIN DETEMIR) 1 UNITS/0.01ML SC ×2 (09:19→20:13)
[2018-02-24] MEDS: LORazepam 0.5 MG TAB PO ×2 (09:38→20:13)
[2018-02-24 12:03] LABS: BEDSIDE GLUCOSE 206 MG/DL (70-105)
[2018-02-24 16:44] LABS: BEDSIDE GLUCOSE 248 MG/DL (70-105)
[2018-02-24] MEDS: POTASSIUM CHLORIDE 10 MEQ SR TABLET PO (18:00)
[2018-02-24] MEDS: ROSUVASTATIN 10 MG TAB (CRESTOR) PO (20:13)
[2018-02-24] MEDS ORDERED: PILL CRUSHER/CUTTER 1 EACH XX (20:15)
[2018-02-24 22:15] LABS: BEDSIDE GLUCOSE 172 MG/DL (70-105)
[2018-02-25] MEDS: NYSTATIN 500,000 U/5 ML SUSP UDC SS ×4 (05:38→22:59)
[2018-02-25] MEDS: LEVOTHYROXINE 75MCG TABLET (0.075MG) PO (05:38)
[2018-02-25 06:48] LABS: BASO # 0.1 10^3/uL (0.0-0.2); BASO % 0.8 % (0.0-1.0); EOS # 0.2 10^3/uL (0.0-0.50); EOS % 2.7 % (0.0-3.0); HEMATOCRIT 31.3 % (36.0-47.0); IMMATURE GRANULOCYTE % 0.2 % (0-3.0); LYMPH # 1.8 10^3/uL (1.5-4.5); LYMPH % 29.1 % (24.0-44.0); MEAN CORPUSCULAR HEMOGLOBIN 27.7 pg (27.0-33.0); MEAN CORPUSCULAR HGB CONC 31.9 g/dl (32.0-36.5); MEAN CORPUSCULAR VOLUME 86.7 fl (80.0-96.0); MONO # 0.5 10^3/uL (0.0-0.8); NEUTROPHILS # 3.7 10^3/uL (1.8-7.7); NEUTROPHILS % 59.2 % (36.0-66.0); PLATELET COUNT, AUTOMATED 255 10^3/uL (150-450); RED BLOOD COUNT 3.61 10^6/uL (4.00-5.40); RED CELL DISTRIBUTION WIDTH 14.3 % (11.5-14.5); RETIC HEMOGLOBIN EQUIVALENT 31.2 pg (24-36); RETICULOCYTE # 40.4 10^9/L (17-77); RETICULOCYTE % 1.1 % (0.5-1.5); WHITE BLOOD COUNT 6.3 10^3/uL (4.0-10.0)
[2018-02-25 07:09] LABS: ALBUMIN 2.7 GM/DL (3.2-5.2); ALBUMIN/GLOBULIN RATIO 0.66 (1.00-1.93); ALKALINE PHOSPHATASE 95 U/L (45-117); ALT/SGPT 21 U/L (12-78); ANION GAP 7 MEQ/L (8-16); AST/SGOT 29 U/L (7-37); BILIRUBIN,TOTAL 0.2 MG/DL (0.2-1.0); BLOOD UREA NITROGEN 32 MG/DL (7-18); CALCIUM LEVEL 8.1 MG/DL (8.5-10.1); CARBON DIOXIDE LEVEL 21 MEQ/L (21-32); CHLORIDE LEVEL 114 MEQ/L (98-107); CREATININE FOR GFR 2.41 MG/DL (0.55-1.30); GLOMERULAR FILTRATION RATE 23.1 (>58); GLUCOSE, FASTING 239 MG/DL (70-100); POTASSIUM SERUM 4.2 MEQ/L (3.5-5.1); SODIUM LEVEL 142 MEQ/L (136-145); TOTAL PROTEIN 6.8 GM/DL (6.4-8.2)
[2018-02-25] MEDS: ASPIRIN 81 MG ENTERIC TAB PO (10:13)
[2018-02-25] MEDS: HumaLOG INSULIN (NovoLOG) PER UNIT SC ×4 (10:13→20:57)
[2018-02-25] MEDS: LEVEMIR (INSULIN DETEMIR) 1 UNITS/0.01ML SC ×2 (10:13→20:57)
[2018-02-25] MEDS: CLOPIDOGREL 75 MG TAB PO (10:14)
[2018-02-25] MEDS: CitaloPRAM (CeleXA) 20 MG TAB PO (10:14)
[2018-02-25] MEDS: NS 1,000 ML IV ×2 (14:12→22:59)
[2018-02-25 16:59] LABS: BEDSIDE GLUCOSE 89 MG/DL (70-105)
[2018-02-25] MEDS: ROSUVASTATIN 10 MG TAB (CRESTOR) PO (20:57)
[2018-02-25] MEDS: MOM 30ML SUSPENSION UDC PO (22:58)
[2018-02-26] MEDS: LEVOTHYROXINE 75MCG TABLET (0.075MG) PO (05:43)
[2018-02-26] MEDS: NYSTATIN 500,000 U/5 ML SUSP UDC SS ×3 (05:43→17:48)
[2018-02-26 06:07] LABS: BASO # 0.1 10^3/uL (0.0-0.2); BASO % 0.7 % (0.0-1.0); EOS # 0.2 10^3/uL (0.0-0.50); EOS % 3.1 % (0.0-3.0); HEMATOCRIT 31.8 % (36.0-47.0); HEMOGLOBIN 10.4 g/dl (12.0-15.5); IMMATURE GRANULOCYTE % 0.1 % (0-3.0); LYMPH # 1.8 10^3/uL (1.5-4.5); LYMPH % 26.5 % (24.0-44.0); MEAN CORPUSCULAR HEMOGLOBIN 27.3 pg (27.0-33.0); MEAN CORPUSCULAR HGB CONC 32.7 g/dl (32.0-36.5); MEAN CORPUSCULAR VOLUME 83.5 fl (80.0-96.0); MONO # 0.4 10^3/uL (0.0-0.8); MONO % 6.3 % (0.0-5.0); NEUTROPHILS # 4.2 10^3/uL (1.8-7.7); NEUTROPHILS % 63.3 % (36.0-66.0); PLATELET COUNT, AUTOMATED 283 10^3/uL (150-450); RED BLOOD COUNT 3.81 10^6/uL (4.00-5.40); WHITE BLOOD COUNT 6.7 10^3/uL (4.0-10.0)
[2018-02-26 06:27] LABS: ALBUMIN/GLOBULIN RATIO 0.75 (1.00-1.93); ALKALINE PHOSPHATASE 110 U/L (45-117); ALT/SGPT 40 U/L (12-78); ANION GAP 7 MEQ/L (8-16); AST/SGOT 51 U/L (7-37); BILIRUBIN,TOTAL 0.3 MG/DL (0.2-1.0); BLOOD UREA NITROGEN 35 MG/DL (7-18); CALCIUM LEVEL 8.2 MG/DL (8.5-10.1); CARBON DIOXIDE LEVEL 24 MEQ/L (21-32); CHLORIDE LEVEL 108 MEQ/L (98-107); CREATININE FOR GFR 2.01 MG/DL (0.55-1.30); GLOMERULAR FILTRATION RATE 28.5 (>58); GLUCOSE, FASTING 382 MG/DL (70-100); POTASSIUM SERUM 4.3 MEQ/L (3.5-5.1); SODIUM LEVEL 139 MEQ/L (136-145)
[2018-02-26] MEDS: HumaLOG INSULIN (NovoLOG) PER UNIT SC ×4 (07:50→21:15)
[2018-02-26] MEDS: ASPIRIN 81 MG ENTERIC TAB PO (07:51)
[2018-02-26] MEDS: CLOPIDOGREL 75 MG TAB PO (07:51)
[2018-02-26] MEDS: LEVEMIR (INSULIN DETEMIR) 1 UNITS/0.01ML SC ×2 (07:51→21:15)
[2018-02-26] MEDS: CitaloPRAM (CeleXA) 20 MG TAB PO (07:51)
[2018-02-26] MEDS: NS 1,000 ML IV (16:14)
[2018-02-26 17:40] LABS: BEDSIDE GLUCOSE 269 MG/DL (70-105)
[2018-02-26] MEDS: EZETIMIBE 10 MG TAB (ZETIA) PO (17:48)
[2018-02-26] MEDS: ROSUVASTATIN 10 MG TAB (CRESTOR) PO (21:14)
[2018-02-26] MEDS: CARVedilol 6.25 MG TAB PO (21:14)
[2018-02-26 21:53] LABS: BEDSIDE GLUCOSE 252 MG/DL (70-105)
[2018-02-27] MEDS: NYSTATIN 500,000 U/5 ML SUSP UDC SS ×3 (00:20→12:00)
[2018-02-27] MEDS: LEVOTHYROXINE 75MCG TABLET (0.075MG) PO (05:37)
[2018-02-27 06:47] LABS: BASO # 0.1 10^3/uL (0.0-0.2); BASO % 0.8 % (0.0-1.0); EOS # 0.3 10^3/uL (0.0-0.50); EOS % 4.1 % (0.0-3.0); HEMATOCRIT 32.3 % (36.0-47.0); HEMOGLOBIN 10.4 g/dl (12.0-15.5); IMMATURE GRANULOCYTE % 0.4 % (0-3.0); LYMPH # 1.9 10^3/uL (1.5-4.5); LYMPH % 25.6 % (24.0-44.0); MEAN CORPUSCULAR HEMOGLOBIN 27.8 pg (27.0-33.0); MEAN CORPUSCULAR HGB CONC 32.2 g/dl (32.0-36.5); MEAN CORPUSCULAR VOLUME 86.4 fl (80.0-96.0); MONO # 0.6 10^3/uL (0.0-0.8); MONO % 7.8 % (0.0-5.0); NEUTROPHILS # 4.6 10^3/uL (1.8-7.7); NEUTROPHILS % 61.3 % (36.0-66.0); PLATELET COUNT, AUTOMATED 252 10^3/uL (150-450); RED BLOOD COUNT 3.74 10^6/uL (4.00-5.40); WHITE BLOOD COUNT 7.6 10^3/uL (4.0-10.0)
[2018-02-27 07:03] LABS: ALBUMIN 2.8 GM/DL (3.2-5.2); ALBUMIN/GLOBULIN RATIO 0.68 (1.00-1.93); ALKALINE PHOSPHATASE 97 U/L (45-117); ALT/SGPT 31 U/L (12-78); ANION GAP 6 MEQ/L (8-16); AST/SGOT 29 U/L (7-37); BILIRUBIN,TOTAL 0.3 MG/DL (0.2-1.0); BLOOD UREA NITROGEN 32 MG/DL (7-18); CALCIUM LEVEL 8.3 MG/DL (8.5-10.1); CARBON DIOXIDE LEVEL 23 MEQ/L (21-32); CHLORIDE LEVEL 110 MEQ/L (98-107); CREATININE FOR GFR 1.75 MG/DL (0.55-1.30); GLOMERULAR FILTRATION RATE 33.5 (>58); GLUCOSE, FASTING 193 MG/DL (70-100); POTASSIUM SERUM 4.3 MEQ/L (3.5-5.1); SODIUM LEVEL 139 MEQ/L (136-145); TOTAL PROTEIN 6.9 GM/DL (6.4-8.2)
[2018-02-27] MEDS: EZETIMIBE 10 MG TAB (ZETIA) PO (09:27)
[2018-02-27] MEDS: ASPIRIN 81 MG ENTERIC TAB PO (09:27)
[2018-02-27] MEDS: CLOPIDOGREL 75 MG TAB PO (09:27)
[2018-02-27] MEDS: CitaloPRAM (CeleXA) 20 MG TAB PO (09:27)
[2018-02-27] MEDS: LEVEMIR (INSULIN DETEMIR) 1 UNITS/0.01ML SC (09:28)
[2018-02-27] MEDS: HumaLOG INSULIN (NovoLOG) PER UNIT SC ×2 (09:29→12:00)
[2018-02-27] MEDS: CARVedilol 6.25 MG TAB PO (09:34)
[2018-02-27 12:18] LABS: BEDSIDE GLUCOSE 307 MG/DL (70-105)
[2018-02-27 12:18] LABS: BEDSIDE GLUCOSE 241 MG/DL (70-105)
[2018-02-27 12:18] LABS: BEDSIDE GLUCOSE 333 MG/DL (70-105)
== END 2018-02-27 13:25 | disposition home or self-care (01) | DRG 65 ==
LOC: M ED 06:13 → M ED INP 15:41 → M MSPAV 18:46
DX: I63.9 Cerebral infarction, unspecified (principal); N30.00 Acute cystitis without hematuria; F33.9 Major depressive disorder, recurrent, unspecified; N17.9 Acute kidney failure, unspecified; E10.42 Type 1 diabetes mellitus with diabetic polyneuropathy; R27.0 Ataxia, unspecified; E10.51 Type 1 diabetes mellitus with diabetic peripheral angiopathy without gangrene; I70.1 Atherosclerosis of renal artery; E78.5 Hyperlipidemia, unspecified; E86.0 Dehydration; N18.3 Chronic kidney disease, stage 3 (moderate); I12.9 Hypertensive chronic kidney disease with stage 1 through stage 4 chronic kidney disease, or unspecified chronic kidney disease; E03.9 Hypothyroidism, unspecified; F41.1 Generalized anxiety disorder; D63.1 Anemia in chronic kidney disease; Z79.4 Long term (current) use of insulin; Z79.890 Hormone replacement therapy; Z86.73 Personal history of transient ischemic attack (TIA), and cerebral infarction without residual deficits; Z79.02 Long term (current) use of antithrombotics/antiplatelets; Z79.82 Long term (current) use of aspirin; Z79.899 Other long term (current) drug therapy; Z87.891 Personal history of nicotine dependence

== ENCOUNTER 2018-03-04 17:17 | Emergency (ER) | payer MEDICARE, MEDICAID ==
[2018-03-04 19:02] LABS: BASO # 0.1 10^3/uL (0.0-0.2); BASO % 0.6 % (0.0-1.0); EOS # 0.3 10^3/uL (0.0-0.50); EOS % 3.2 % (0.0-3.0); HEMATOCRIT 31.8 % (36.0-47.0); HEMOGLOBIN 10.3 g/dl (12.0-15.5); IMMATURE GRANULOCYTE % 0.4 % (0-3.0); LYMPH # 2.4 10^3/uL (1.5-4.5); LYMPH % 28.2 % (24.0-44.0); MEAN CORPUSCULAR HEMOGLOBIN 27.3 pg (27.0-33.0); MEAN CORPUSCULAR HGB CONC 32.4 g/dl (32.0-36.5); MEAN CORPUSCULAR VOLUME 84.4 fl (80.0-96.0); MONO # 0.6 10^3/uL (0.0-0.8); MONO % 7.5 % (0.0-5.0); NEUTROPHILS # 5.2 10^3/uL (1.8-7.7); NEUTROPHILS % 60.1 % (36.0-66.0); PLATELET COUNT, AUTOMATED 296 10^3/uL (150-450); RED BLOOD COUNT 3.77 10^6/uL (4.00-5.40); RED CELL DISTRIBUTION WIDTH 14.2 % (11.5-14.5); WHITE BLOOD COUNT 8.6 10^3/uL (4.0-10.0)
[2018-03-04 19:13] LABS: INR 0.88
[2018-03-04 19:14] LABS: PARTIAL THROMBOPLASTIN TIME 32.4 SECONDS (26.8-37.9)
[2018-03-04] MEDS: LABETALOL HCL 100 MG/20 ML VIAL IV (19:17)
[2018-03-04] MEDS: LORazepam 2 MG/ML VIAL (J2060) IV ×2 (19:17→20:08)
[2018-03-04 19:21] LABS: CONTROL LINE HCG INT CTR LINE PRESENT; HCG, SERUM QUALITATIVE NEGATIVE (NEGATIVE)
[2018-03-04 19:26] LABS: IONIZED CALCIUM 4.7 MG/DL (4.5-5.3)
[2018-03-04 19:37] LABS: ANION GAP 5 MEQ/L (8-16); BLOOD UREA NITROGEN 35 MG/DL (7-18); CALCIUM LEVEL 8.7 MG/DL (8.5-10.1); CARBON DIOXIDE LEVEL 27 MEQ/L (21-32); CHLORIDE LEVEL 106 MEQ/L (98-107); CPK CREATINE PHOSPHOKINASE 81 U/L (26-192); GLOMERULAR FILTRATION RATE 25.7 (>58); GLUCOSE, FASTING 316 MG/DL (70-100); POTASSIUM SERUM 4.9 MEQ/L (3.5-5.1); SODIUM LEVEL 138 MEQ/L (136-145); TROPONIN I < 0.02 NG/ML (< 0.10)
[2018-03-04 19:38] LABS: CK-MB VALUE MASS 1.2 NG/ML (<3.6); MB/CK RELATIVE INDEX 1.48 (< OR =4)
[2018-03-04] MEDS: carBAMazepine 200 MG TAB PO (21:14)
== END 2018-03-04 22:47 | disposition home or self-care (01) ==
LOC: M ED 17:17
DX: G50.0 Trigeminal neuralgia (principal); I10 Essential (primary) hypertension; Z86.73 Personal history of transient ischemic attack (TIA), and cerebral infarction without residual deficits; N18.9 Chronic kidney disease, unspecified; K31.84 Gastroparesis; H33.059 Total retinal detachment, unspecified eye; F43.10 Post-traumatic stress disorder, unspecified; F44.4 Conversion disorder with motor symptom or deficit; Z79.84 Long term (current) use of oral hypoglycemic drugs; Z79.4 Long term (current) use of insulin; Z79.899 Other long term (current) drug therapy
CPT/HCPCS: J2060

== ENCOUNTER 2018-03-08 14:54 | Emergency (ER) | payer MEDICARE, MEDICAID ==
[2018-03-08 16:07] LABS: BASO % 0.4 % (0.0-1.0); EOS # 0.1 10^3/uL (0.0-0.50); HEMATOCRIT 38.1 % (36.0-47.0); HEMOGLOBIN 12.2 g/dl (12.0-15.5); IMMATURE GRANULOCYTE % 0.3 % (0-3.0); LYMPH % 13.4 % (24.0-44.0); MEAN CORPUSCULAR HEMOGLOBIN 27.6 pg (27.0-33.0); MEAN CORPUSCULAR VOLUME 86.2 fl (80.0-96.0); MONO # 0.4 10^3/uL (0.0-0.8); MONO % 5.2 % (0.0-5.0); NEUTROPHILS # 5.8 10^3/uL (1.8-7.7); NEUTROPHILS % 79.7 % (36.0-66.0); PLATELET COUNT, AUTOMATED 314 10^3/uL (150-450); RED BLOOD COUNT 4.42 10^6/uL (4.00-5.40); RED CELL DISTRIBUTION WIDTH 14.1 % (11.5-14.5); WHITE BLOOD COUNT 7.3 10^3/uL (4.0-10.0)
[2018-03-08 16:24] LABS: ALBUMIN 3.5 GM/DL (3.2-5.2); ALBUMIN/GLOBULIN RATIO 0.73 (1.00-1.93); ALKALINE PHOSPHATASE 110 U/L (45-117); ALT/SGPT 19 U/L (12-78); AMYLASE 35 U/L (25-115); ANION GAP 8 MEQ/L (8-16); AST/SGOT 19 U/L (7-37); BILIRUBIN,DIRECT 0.1 MG/DL (0.0-0.2); BILIRUBIN,TOTAL 0.5 MG/DL (0.2-1.0); BLOOD UREA NITROGEN 27 MG/DL (7-18); CALCIUM LEVEL 8.8 MG/DL (8.5-10.1); CARBON DIOXIDE LEVEL 24 MEQ/L (21-32); CHLORIDE LEVEL 104 MEQ/L (98-107); CREATININE FOR GFR 2.24 MG/DL (0.55-1.30); GLOMERULAR FILTRATION RATE 25.2 (>58); GLUCOSE, FASTING 371 MG/DL (70-100); LIPASE 109 U/L (73-393); POTASSIUM SERUM 4.9 MEQ/L (3.5-5.1); SODIUM LEVEL 136 MEQ/L (136-145); TOTAL PROTEIN 8.3 GM/DL (6.4-8.2)
[2018-03-08] MEDS: NS 1,000 ML IV (16:25)
[2018-03-08] MEDS: diphenhydrAMINE INJ 50MG/ML VIAL (J1200) IV (16:25)
[2018-03-08] MEDS: METOCLOPRAMIDE INJ 10MG/2ML VIAL (J2765) IV (16:26)
[2018-03-08] MEDS: PANTOPRAZOLE 40MG INJ (PROTONIX) (C9113) IV (16:26)
[2018-03-08] MEDS: KETOROLAC 30 MG/ML VIAL (J1885) IV (17:27)
[2018-03-08] MEDS: HumuLIN R (REGULAR) INSULIN (NovoLIN R) **100U/ML** PER UNIT IV (17:28)
[2018-03-08 18:57] LABS: BEDSIDE GLUCOSE 247 MG/DL (70-105)
== END 2018-03-08 19:27 | disposition home or self-care (01) ==
LOC: M ED 14:54
DX: F41.9 Anxiety disorder, unspecified (principal); E11.9 Type 2 diabetes mellitus without complications; R11.2 Nausea with vomiting, unspecified; R51 Headache; I10 Essential (primary) hypertension; E07.9 Disorder of thyroid, unspecified; N28.9 Disorder of kidney and ureter, unspecified; Z79.899 Other long term (current) drug therapy; Z79.4 Long term (current) use of insulin; Z79.02 Long term (current) use of antithrombotics/antiplatelets; Z79.82 Long term (current) use of aspirin; Z98.61 Coronary angioplasty status
CPT/HCPCS: C9113

== ENCOUNTER → 2018-03-16 | Outpatient (REF) | payer MEDICARE, MEDICAID ==
[2018-03-16 14:11] LABS: BASO % 0.5 % (0.0-1.0); EOS # 0.2 10^3/uL (0.0-0.50); EOS % 2.6 % (0.0-3.0); HEMATOCRIT 35.1 % (36.0-47.0); HEMOGLOBIN 11.2 g/dl (12.0-15.5); IMMATURE GRANULOCYTE % 0.2 % (0-3.0); LYMPH # 1.8 10^3/uL (1.5-4.5); LYMPH % 20.9 % (24.0-44.0); MEAN CORPUSCULAR HEMOGLOBIN 27.4 pg (27.0-33.0); MEAN CORPUSCULAR HGB CONC 31.9 g/dl (32.0-36.5); MEAN CORPUSCULAR VOLUME 85.8 fl (80.0-96.0); MONO # 0.6 10^3/uL (0.0-0.8); NEUTROPHILS # 5.8 10^3/uL (1.8-7.7); NEUTROPHILS % 68.8 % (36.0-66.0); PLATELET COUNT, AUTOMATED 304 10^3/uL (150-450); RED BLOOD COUNT 4.09 10^6/uL (4.00-5.40); RED CELL DISTRIBUTION WIDTH 13.9 % (11.5-14.5); WHITE BLOOD COUNT 8.5 10^3/uL (4.0-10.0)
[2018-03-16 14:39] LABS: ALBUMIN 3.3 GM/DL (3.2-5.2); ALKALINE PHOSPHATASE 115 U/L (45-117); ALT/SGPT 15 U/L (12-78); ANION GAP 6 MEQ/L (8-16); AST/SGOT 15 U/L (7-37); BILIRUBIN,TOTAL 0.2 MG/DL (0.2-1.0); BLOOD UREA NITROGEN 32 MG/DL (7-18); CALCIUM LEVEL 8.8 MG/DL (8.5-10.1); CARBON DIOXIDE LEVEL 27 MEQ/L (21-32); CHLORIDE LEVEL 104 MEQ/L (98-107); CREATININE FOR GFR 1.82 MG/DL (0.55-1.30); GLUCOSE, FASTING 176 MG/DL (70-100); POTASSIUM SERUM 4.4 MEQ/L (3.5-5.1); SODIUM LEVEL 137 MEQ/L (136-145); TOTAL PROTEIN 7.4 GM/DL (6.4-8.2)
== END ==
LOC: M SFHCPLAZ 11:00
DX: E10.8 Type 1 diabetes mellitus with unspecified complications (principal)
CPT/HCPCS: 80053

== ENCOUNTER 2018-05-24 13:48 | Observation (INO) | payer MEDICARE, MEDICAID ==
[2018-05-24 14:40] LABS: BEDSIDE GLUCOSE 166 MG/DL (70-105)
[2018-05-24 15:19] LABS: BASO % 0.7 % (0.0-1.0); HEMATOCRIT 32.3 % (36.0-47.0); HEMOGLOBIN 10.4 g/dl (12.0-15.5); IMMATURE GRANULOCYTE % 0.7 % (0-3.0); LYMPH # 1.6 10^3/uL (1.5-4.5); LYMPH % 26.9 % (24.0-44.0); MEAN CORPUSCULAR HEMOGLOBIN 27.9 pg (27.0-33.0); MEAN CORPUSCULAR HGB CONC 32.2 g/dl (32.0-36.5); MEAN CORPUSCULAR VOLUME 86.6 fl (80.0-96.0); MONO # 0.4 10^3/uL (0.0-0.8); MONO % 6.5 % (0.0-5.0); NEUTROPHILS # 3.8 10^3/uL (1.8-7.7); NEUTROPHILS % 65.2 % (36.0-66.0); PLATELET COUNT, AUTOMATED 293 10^3/uL (150-450); RED BLOOD COUNT 3.73 10^6/uL (4.00-5.40); RED CELL DISTRIBUTION WIDTH 14.5 % (11.5-14.5); WHITE BLOOD COUNT 5.8 10^3/uL (4.0-10.0)
[2018-05-24 15:23] LABS: INR 0.98; PROTHROMBIN TIME 13.1 SECONDS (12.1-14.4)
[2018-05-24 15:24] LABS: PARTIAL THROMBOPLASTIN TIME 31.9 SECONDS (25.4-37.6)
[2018-05-24 15:28] LABS: CONTROL LINE HCG INT CTR LINE PRESENT; HCG, SERUM QUALITATIVE NEGATIVE (NEGATIVE)
[2018-05-24 15:35] LABS: ANION GAP 6 MEQ/L (8-16); BLOOD UREA NITROGEN 49 MG/DL (7-18); CALCIUM LEVEL 8.5 MG/DL (8.5-10.1); CARBON DIOXIDE LEVEL 25 MEQ/L (21-32); CHLORIDE LEVEL 110 MEQ/L (98-107); CK-MB VALUE MASS 1.4 NG/ML (<3.6); CPK CREATINE PHOSPHOKINASE 95 U/L (26-192); CREATININE FOR GFR 2.01 MG/DL (0.55-1.30); GLOMERULAR FILTRATION RATE 28.5 (>58); GLUCOSE, FASTING 163 MG/DL (70-100); MB/CK RELATIVE INDEX 1.47 (< OR =4); POTASSIUM SERUM 4.5 MEQ/L (3.5-5.1); SODIUM LEVEL 141 MEQ/L (136-145); TROPONIN I < 0.02 NG/ML (< 0.10)
[2018-05-24] MEDS: ALPRAZolam 0.5 MG TAB PO (16:17)
[2018-05-24] MEDS: NS 1,000 ML IV (17:30)
[2018-05-24] MEDS: ASPIRIN 325 MG TAB PO (18:07)
[2018-05-24] MEDS ORDERED: GLUCOSE 4 GM CHEW TABLET PO (20:15)
[2018-05-24] MEDS ORDERED: ACETAMINOPHEN TAB 650MG DOSE (2X325MG) PO (20:15)
[2018-05-24] MEDS ORDERED: GLUCAGON FOR INJ 1 MG VIAL (J1610) SC (20:15)
[2018-05-24 22:11] LABS: BEDSIDE GLUCOSE 145 MG/DL (70-105)
[2018-05-24] MEDS: HumaLOG INSULIN (NovoLOG) PER UNIT SC (22:15)
[2018-05-24] MEDS: LEVEMIR (INSULIN DETEMIR) 1 UNITS/0.01ML SC (22:18)
[2018-05-24] MEDS: carBAMazepine 200 MG TAB PO (22:18)
[2018-05-24] MEDS: GABAPENTIN 300 MG CAP PO (22:19)
[2018-05-24] MEDS: LISINOPRIL 5 MG TAB PO ×2 (22:19→23:43)
[2018-05-24] MEDS: CARVedilol 6.25 MG TAB PO (22:19)
[2018-05-25 04:55] LABS: ANION GAP 7 MEQ/L (8-16); BLOOD UREA NITROGEN 40 MG/DL (7-18); CARBON DIOXIDE LEVEL 25 MEQ/L (21-32); CHLORIDE LEVEL 113 MEQ/L (98-107); CREATININE FOR GFR 1.78 MG/DL (0.55-1.30); GLOMERULAR FILTRATION RATE 32.8 (>58); GLUCOSE, FASTING 70 MG/DL (70-100); POTASSIUM SERUM 3.8 MEQ/L (3.5-5.1); SODIUM LEVEL 145 MEQ/L (136-145)
[2018-05-25] MEDS: LEVOTHYROXINE 75MCG TABLET (0.075MG) PO (06:00)
[2018-05-25 06:30] LABS: BEDSIDE GLUCOSE 21 MG/DL (70-105)
[2018-05-25 06:30] LABS: APPEARANCE, URINE HAZY (CLEAR); BACTERIA, URINE AUTO 3+ (NEGATIVE); BILIRUBIN, URINE AUTO NEGATIVE (NEGATIVE); BLOOD, URINE BLOOD 2+ (NEGATIVE); COLOR, URINE YELLOW (YELLOW); GLUCOSE, URINE (UA) AUTO NEGATIVE (NEGATIVE); KETONE, URINE AUTO NEGATIVE (NEGATIVE); LEUKOCYTE ESTERASE, URINE AUTO 1+ (NEGATIVE); MUCUS, URINE SMALL (NEGATIVE); NITRITE, URINE AUTO NEGATIVE (NEGATIVE); PROTEIN, URINE AUTO 2+ mg/dL (NEGATIVE); RBC, URINE AUTO 1 /HPF (0-3); SPECIFIC GRAVITY URINE AUTO 1.009 (1.002-1.035); SQUAMOUS EPITHELIAL CELL UR AU 0 /HPF (0-6); UROBILINOGEN, URINE AUTO 0.2 mg/dL (0.0-2.0); WBC, URINE AUTO 29 /HPF (0-3)
[2018-05-25] MEDS: DEXTROSE 50% 50 ML SYRINGE IV (06:32)
[2018-05-25 06:53] LABS: BEDSIDE GLUCOSE 173 MG/DL (70-105)
[2018-05-25] MEDS: HumaLOG INSULIN (NovoLOG) PER UNIT SC ×4 (07:30→21:00)
[2018-05-25] MEDS: CitaloPRAM (CeleXA) 20 MG TAB PO (08:55)
[2018-05-25] MEDS: LISINOPRIL 5 MG TAB PO ×2 (08:55→22:53)
[2018-05-25] MEDS: ASPIRIN 325 MG TAB PO (08:55)
[2018-05-25] MEDS: CLOPIDOGREL 75 MG TAB PO (08:55)
[2018-05-25] MEDS: GABAPENTIN 300 MG CAP PO ×2 (08:55→22:52)
[2018-05-25] MEDS: CARVedilol 6.25 MG TAB PO ×2 (08:56→22:51)
[2018-05-25] MEDS: ENOXAPARIN 40 MG/0.4 ML SYRINGE (J1650) SC (08:57)
[2018-05-25 12:04] LABS: BEDSIDE GLUCOSE 61 MG/DL (70-105)
[2018-05-25 12:08] LABS: BEDSIDE GLUCOSE 234 MG/DL (70-105)
[2018-05-25] MEDS: carBAMazepine 200 MG TAB PO ×2 (12:15→22:52)
[2018-05-25 14:13] LABS: BEDSIDE GLUCOSE 220 MG/DL (70-105)
[2018-05-25 18:13] LABS: BEDSIDE GLUCOSE 146 MG/DL (70-105)
[2018-05-25 22:51] LABS: BEDSIDE GLUCOSE 181 MG/DL (70-105)
[2018-05-25] MEDS: LEVEMIR (INSULIN DETEMIR) 1 UNITS/0.01ML SC (22:56)
[2018-05-26 05:01] LABS: ANION GAP 7 MEQ/L (8-16); BLOOD UREA NITROGEN 42 MG/DL (7-18); CALCIUM LEVEL 8.1 MG/DL (8.5-10.1); CARBON DIOXIDE LEVEL 25 MEQ/L (21-32); CHLORIDE LEVEL 110 MEQ/L (98-107); CREATININE FOR GFR 2.05 MG/DL (0.55-1.30); GLOMERULAR FILTRATION RATE 27.9 (>58); GLUCOSE, FASTING 172 MG/DL (70-100); POTASSIUM SERUM 4.3 MEQ/L (3.5-5.1); SODIUM LEVEL 142 MEQ/L (136-145)
[2018-05-26] MEDS: LEVOTHYROXINE 75MCG TABLET (0.075MG) PO (05:40)
[2018-05-26] MEDS: ENOXAPARIN 40 MG/0.4 ML SYRINGE (J1650) SC (08:38)
[2018-05-26] MEDS: CitaloPRAM (CeleXA) 20 MG TAB PO (08:39)
[2018-05-26] MEDS: GABAPENTIN 300 MG CAP PO (08:39)
[2018-05-26] MEDS: carBAMazepine 200 MG TAB PO (08:39)
[2018-05-26] MEDS: ASPIRIN 325 MG TAB PO (08:39)
[2018-05-26] MEDS: LISINOPRIL 5 MG TAB PO (08:39)
[2018-05-26] MEDS: CLOPIDOGREL 75 MG TAB PO (08:39)
[2018-05-26] MEDS: CARVedilol 6.25 MG TAB PO (08:39)
[2018-05-26] MEDS: HumaLOG INSULIN (NovoLOG) PER UNIT SC (09:14)
== END 2018-05-26 11:49 | disposition home health service (06) ==
LOC: M ED 13:48 → M ED INP 20:09 → M ICU 22:53
PROVIDERS: Family Medicine
DX: I61.3 Nontraumatic intracerebral hemorrhage in brain stem (principal); E10.319 Type 1 diabetes mellitus with unspecified diabetic retinopathy without macular edema; E10.21 Type 1 diabetes mellitus with diabetic nephropathy; E10.43 Type 1 diabetes mellitus with diabetic autonomic (poly)neuropathy; E10.22 Type 1 diabetes mellitus with diabetic chronic kidney disease; I12.9 Hypertensive chronic kidney disease with stage 1 through stage 4 chronic kidney disease, or unspecified chronic kidney disease; N18.9 Chronic kidney disease, unspecified; E78.4 Other hyperlipidemia; Z79.4 Long term (current) use of insulin; Z79.02 Long term (current) use of antithrombotics/antiplatelets; Z79.82 Long term (current) use of aspirin; Z87.891 Personal history of nicotine dependence; G47.30 Sleep apnea, unspecified; Z79.899 Other long term (current) drug therapy
CPT/HCPCS: J1650

== ENCOUNTER → 2018-05-28 | Outpatient (REF) | payer MEDICARE, MEDICAID ==
[2018-05-28 15:51] LABS: RETIC HEMOGLOBIN EQUIVALENT 29.4 pg (24-36); RETICULOCYTE # 61.7 10^9/L (17-77); RETICULOCYTE % 1.7 % (0.5-1.5)
[2018-05-28 16:05] LABS: ESTIMATED AVERAGE GLUCOSE 220 MG/DL (60-110); HEMOGLOBIN A1c 9.3 %
[2018-05-28 16:06] LABS: ALBUMIN 3.5 GM/DL (3.2-5.2); ALKALINE PHOSPHATASE 115 U/L (45-117); ALT/SGPT 39 U/L (12-78); ANION GAP 8 MEQ/L (8-16); AST/SGOT 32 U/L (7-37); BILIRUBIN,TOTAL 0.2 MG/DL (0.2-1.0); BLOOD UREA NITROGEN 44 MG/DL (7-18); C REACTIVE PROTEIN QUANTITATIV < 0.30 MG/DL (0.00-0.30); CALCIUM LEVEL 8.6 MG/DL (8.5-10.1); CARBAMAZEPINE (TEGRETOL) LEVEL 2.8 UG/ML (4.0-10.0); CARBON DIOXIDE LEVEL 22 MEQ/L (21-32); CHLORIDE LEVEL 110 MEQ/L (98-107); CHOLESTEROL LEVEL 207 MG/DL (<200); CHOLESTEROL RISK RATIO 3.631 (<5); CPK CREATINE PHOSPHOKINASE 89 U/L (26-192); CREATININE FOR GFR 2.12 MG/DL (0.55-1.30); FREE T4 0.75 NG/DL (0.76-1.46); GLOMERULAR FILTRATION RATE 26.8 (>58); GLUCOSE, FASTING 242 MG/DL (70-100); HDL CHOLESTEROL 57 MG/DL (>40); LDL CHOLESTEROL 129.4 MG/DL (<100); MAGNESIUM LEVEL 2.1 MG/DL (1.8-2.4); NON-HDL-C 150 MG/DL; POTASSIUM SERUM 4.9 MEQ/L (3.5-5.1); SODIUM LEVEL 140 MEQ/L (136-145); TOTAL PROTEIN 7.4 GM/DL (6.4-8.2); TRIGLYCERIDES LEVEL 103 MG/DL (<150)
[2018-05-28 16:08] LABS: PTH INTACT 124.6 PG/ML (18.5-88.0)
[2018-05-28 16:09] LABS: VITAMIN B12 LEVEL 629 PG/ML (247-911)
== END ==
LOC: M SFHCPLAZ 12:26
DX: E03.9 Hypothyroidism, unspecified (principal); E78.2 Mixed hyperlipidemia; E10.8 Type 1 diabetes mellitus with unspecified complications; I10 Essential (primary) hypertension; D50.9 Iron deficiency anemia, unspecified; E55.9 Vitamin D deficiency, unspecified; G50.0 Trigeminal neuralgia; Z68.32 Body mass index [BMI] 32.0-32.9, adult
CPT/HCPCS: 82550

== ENCOUNTER 2018-06-05 15:33 | Inpatient (IN) | payer MEDICARE, MEDICAID ==
[2018-06-05] MEDS: NS 500 ML IV (16:20)
[2018-06-05 16:27] LABS: BASO % 0.4 % (0.0-1.0); EOS % 0.1 % (0.0-3.0); HEMOGLOBIN 9.3 g/dl (12.0-15.5); IMMATURE GRANULOCYTE % 0.3 % (0-3.0); LYMPH # 1.4 10^3/uL (1.5-4.5); LYMPH % 18.5 % (24.0-44.0); MEAN CORPUSCULAR HEMOGLOBIN 28.1 pg (27.0-33.0); MEAN CORPUSCULAR HGB CONC 32.1 g/dl (32.0-36.5); MEAN CORPUSCULAR VOLUME 87.6 fl (80.0-96.0); MONO # 0.5 10^3/uL (0.0-0.8); MONO % 6.6 % (0.0-5.0); NEUTROPHILS # 5.7 10^3/uL (1.8-7.7); NEUTROPHILS % 74.1 % (36.0-66.0); PLATELET COUNT, AUTOMATED 273 10^3/uL (150-450); RED BLOOD COUNT 3.31 10^6/uL (4.00-5.40); RED CELL DISTRIBUTION WIDTH 14.2 % (11.5-14.5); WHITE BLOOD COUNT 7.7 10^3/uL (4.0-10.0)
[2018-06-05 16:32] LABS: CONTROL LINE HCG INT CTR LINE PRESENT; HCG, SERUM QUALITATIVE NEGATIVE (NEGATIVE)
[2018-06-05 16:41] LABS: ANION GAP 7 MEQ/L (8-16); BLOOD UREA NITROGEN 56 MG/DL (7-18); CALCIUM LEVEL 7.9 MG/DL (8.5-10.1); CARBON DIOXIDE LEVEL 23 MEQ/L (21-32); CHLORIDE LEVEL 111 MEQ/L (98-107); CK-MB VALUE MASS 1.5 NG/ML (<3.6); CPK CREATINE PHOSPHOKINASE 130 U/L (26-192); CREATININE FOR GFR 2.29 MG/DL (0.55-1.30); GLOMERULAR FILTRATION RATE 24.5 (>58); GLUCOSE, FASTING 189 MG/DL (70-100); MB/CK RELATIVE INDEX 1.15 (< OR =4); SODIUM LEVEL 141 MEQ/L (136-145); TROPONIN I < 0.02 NG/ML (< 0.10)
[2018-06-05 16:47] LABS: POTASSIUM SERUM 5.2 MEQ/L (3.5-5.1)
[2018-06-05 17:25] LABS: ALBUMIN 2.9 GM/DL (3.2-5.2); ALBUMIN/GLOBULIN RATIO 0.71 (1.00-1.93); ALKALINE PHOSPHATASE 102 U/L (45-117); ALT/SGPT 33 U/L (12-78); AST/SGOT 39 U/L (7-37); BILIRUBIN,DIRECT < 0.1 MG/DL (0.0-0.2); BILIRUBIN,TOTAL 0.2 MG/DL (0.2-1.0); ETHYL ALCOHOL (ETHANOL) < 0.003 % (0.000-0.010)
[2018-06-05 17:28] LABS: VITAMIN B12 LEVEL 519 PG/ML (247-911)
[2018-06-05 17:34] LABS: INR 0.92; PROTHROMBIN TIME 12.5 SECONDS (12.1-14.4)
[2018-06-05 17:35] LABS: PARTIAL THROMBOPLASTIN TIME 25.8 SECONDS (25.4-37.6)
[2018-06-05 18:00] LABS: AMPHETAMINES LEVEL URINE NEGATIVE (NEGATIVE); BARBITURATES URINE NEGATIVE (NEGATIVE); BENZODIAZEPINES URINE NEGATIVE (NEGATIVE); CANNABINOIDS URINE NEGATIVE (NEGATIVE); COCAINE METABOLITE URINE NEGATIVE (NEGATIVE); METHADONE URINE NEGATIVE (NEGATIVE); OPIATES URINE NEGATIVE (NEGATIVE); PHENCYCLIDINE URINE NEGATIVE (NEGATIVE)
[2018-06-05] MEDS: LORazepam 2 MG/ML VIAL (J2060) IV ×2 (20:03→21:11)
[2018-06-05] MEDS: CARVedilol 6.25 MG TAB PO (22:30)
[2018-06-05] MEDS: NITROGLYCERIN 2% OINT 1 GM *U/D* PKT TOP (22:30)
[2018-06-05 22:56] LABS: BEDSIDE GLUCOSE 121 MG/DL (70-105)
[2018-06-06] MEDS ORDERED: GLUCAGON FOR INJ 1 MG VIAL (J1610) SC (01:30)
[2018-06-06] MEDS ORDERED: DEXTROSE 50% 50 ML SYRINGE IV (01:30)
[2018-06-06] MEDS ORDERED: GLUCOSE 4 GM CHEW TABLET PO (01:30)
[2018-06-06] MEDS ORDERED: ACETAMINOPHEN TAB 650MG DOSE (2X325MG) PO (01:30)
[2018-06-06] MEDS: HEPARIN SOD (PORCINE) 5000 UNITS/ML VIAL SC (06:00)
[2018-06-06 07:37] LABS: BEDSIDE GLUCOSE 285 MG/DL (70-105)
[2018-06-06] MEDS: HumaLOG INSULIN (NovoLOG) PER UNIT SC ×2 (07:43→12:45)
[2018-06-06 12:44] LABS: BEDSIDE GLUCOSE 173 MG/DL (70-105)
[2018-06-06] MEDS ORDERED: HumaLOG INSULIN (NovoLOG) PER UNIT SC (21:00)
== END 2018-06-06 13:38 | disposition home or self-care (01) | DRG 92 ==
LOC: M ED INP 06-06 01:23 → M ED 15:33
DX: R47.81 Slurred speech (principal); N18.4 Chronic kidney disease, stage 4 (severe); E10.51 Type 1 diabetes mellitus with diabetic peripheral angiopathy without gangrene; E10.22 Type 1 diabetes mellitus with diabetic chronic kidney disease; I12.9 Hypertensive chronic kidney disease with stage 1 through stage 4 chronic kidney disease, or unspecified chronic kidney disease; D50.0 Iron deficiency anemia secondary to blood loss (chronic); E78.5 Hyperlipidemia, unspecified; E10.42 Type 1 diabetes mellitus with diabetic polyneuropathy; G50.0 Trigeminal neuralgia; I65.23 Occlusion and stenosis of bilateral carotid arteries; Z86.73 Personal history of transient ischemic attack (TIA), and cerebral infarction without residual deficits; Z79.4 Long term (current) use of insulin; Z79.02 Long term (current) use of antithrombotics/antiplatelets; Z79.82 Long term (current) use of aspirin; Z79.899 Other long term (current) drug therapy; Z87.891 Personal history of nicotine dependence

== ENCOUNTER → 2018-06-30 | Outpatient (REF) | payer MEDICARE, MEDICAID ==
[2018-06-30 16:50] LABS: BASO % 0.7 % (0.0-1.0); HEMATOCRIT 29.9 % (36.0-47.0); HEMOGLOBIN 9.4 g/dl (12.0-15.5); IMMATURE GRANULOCYTE % 0.3 % (0-3.0); LYMPH # 1.4 10^3/uL (1.5-4.5); LYMPH % 22.4 % (24.0-44.0); MEAN CORPUSCULAR HEMOGLOBIN 28.6 pg (27.0-33.0); MEAN CORPUSCULAR HGB CONC 31.4 g/dl (32.0-36.5); MEAN CORPUSCULAR VOLUME 90.9 fl (80.0-96.0); MONO # 0.4 10^3/uL (0.0-0.8); MONO % 5.8 % (0.0-5.0); NEUTROPHILS # 4.3 10^3/uL (1.8-7.7); NEUTROPHILS % 70.8 % (36.0-66.0); PLATELET COUNT, AUTOMATED 216 10^3/uL (150-450); RED BLOOD COUNT 3.29 10^6/uL (4.00-5.40); RED CELL DISTRIBUTION WIDTH 14.2 % (11.5-14.5)
[2018-06-30 17:23] LABS: PTH INTACT 79.9 PG/ML (18.5-88.0)
[2018-06-30 18:41] LABS: ALBUMIN 3.2 GM/DL (3.2-5.2); ALBUMIN/GLOBULIN RATIO 0.82 (1.00-1.93); ALKALINE PHOSPHATASE 118 U/L (45-117); ALT/SGPT 56 U/L (12-78); ANION GAP 9 MEQ/L (8-16); AST/SGOT 44 U/L (7-37); BILIRUBIN,TOTAL 0.2 MG/DL (0.2-1.0); BLOOD UREA NITROGEN 62 MG/DL (7-18); CALCIUM LEVEL 8.1 MG/DL (8.5-10.1); CARBAMAZEPINE (TEGRETOL) LEVEL 7.1 UG/ML (4.0-10.0); CARBON DIOXIDE LEVEL 24 MEQ/L (21-32); CHLORIDE LEVEL 103 MEQ/L (98-107); COMPLEMENT C3 111 MG/DL (90-180); COMPLEMENT C4 26.5 MG/DL (10-40); CREATININE FOR GFR 2.83 MG/DL (0.55-1.30); GLOMERULAR FILTRATION RATE 19.1 (>58); SODIUM LEVEL 136 MEQ/L (136-145); TOTAL PROTEIN 7.1 GM/DL (6.4-8.2)
[2018-06-30 19:48] LABS: GLUCOSE, FASTING 454 MG/DL (70-100)
[2018-06-30 19:49] LABS: POTASSIUM SERUM 6.3 MEQ/L (3.5-5.1)
== END ==
LOC: M SFHCPLAZ 13:22
DX: G50.0 Trigeminal neuralgia (principal); E55.9 Vitamin D deficiency, unspecified; R76.8 Other specified abnormal immunological findings in serum
CPT/HCPCS: 80156

== ENCOUNTER → 2018-07-01 | Outpatient (REF) | payer MEDICARE, MEDICAID ==
[2018-07-01 13:06] LABS: ANION GAP 8 MEQ/L (8-16); BLOOD UREA NITROGEN 63 MG/DL (7-18); CALCIUM LEVEL 8.4 MG/DL (8.5-10.1); CARBON DIOXIDE LEVEL 22 MEQ/L (21-32); CHLORIDE LEVEL 110 MEQ/L (98-107); CREATININE FOR GFR 2.77 MG/DL (0.55-1.30); GLOMERULAR FILTRATION RATE 19.6 (>58); GLUCOSE, FASTING 238 MG/DL (70-100); SODIUM LEVEL 140 MEQ/L (136-145)
== END ==
LOC: M SFHCPLAZ 11:18
DX: E87.5 Hyperkalemia (principal)
CPT/HCPCS: 80048

== ENCOUNTER → 2018-07-09 | Outpatient (REF) | payer MEDICARE, MEDICAID ==
[2018-07-09 12:19] LABS: ANION GAP 10 MEQ/L (8-16); BLOOD UREA NITROGEN 71 MG/DL (7-18); CALCIUM LEVEL 8.2 MG/DL (8.5-10.1); CARBON DIOXIDE LEVEL 21 MEQ/L (21-32); CHLORIDE LEVEL 109 MEQ/L (98-107); CREATININE FOR GFR 2.88 MG/DL (0.55-1.30); GLOMERULAR FILTRATION RATE 18.7 (>58); GLUCOSE, FASTING 206 MG/DL (70-100); PHOSPHORUS LEVEL 5.1 MG/DL (2.5-4.9); SODIUM LEVEL 140 MEQ/L (136-145)
[2018-07-09 12:27] LABS: POTASSIUM SERUM 5.3 MEQ/L (3.5-5.1)
== END ==
LOC: M SFHCPLAZ 09:24
DX: E11.29 Type 2 diabetes mellitus with other diabetic kidney complication (principal); N18.3 Chronic kidney disease, stage 3 (moderate)

== ENCOUNTER → 2018-07-09 | Outpatient (CLI) | payer MEDICARE, MEDICAID | LOC: M WHC 08:45 | DX: Z12.31 Encounter for screening mammogram for malignant neoplasm of breast (principal); E11.29 Type 2 diabetes mellitus with other diabetic kidney complication; N18.3 Chronic kidney disease, stage 3 (moderate); Z80.0 Family history of malignant neoplasm of digestive organs | CPT/HCPCS: 80069 ==

== ENCOUNTER 2018-07-14 08:25 | Emergency (ER) | payer MEDICARE, MEDICAID ==
[2018-07-14 08:51] LABS: BEDSIDE GLUCOSE 378 MG/DL (70-105)
[2018-07-14 09:32] LABS: BASO % 0.5 % (0.0-1.0); EOS % 0.5 % (0.0-3.0); HEMATOCRIT 33.9 % (36.0-47.0); HEMOGLOBIN 10.8 g/dl (12.0-15.5); IMMATURE GRANULOCYTE % 0.4 % (0-3.0); LYMPH % 11.9 % (24.0-44.0); MEAN CORPUSCULAR HGB CONC 31.9 g/dl (32.0-36.5); MEAN CORPUSCULAR VOLUME 90.9 fl (80.0-96.0); MONO # 0.4 10^3/uL (0.0-0.8); MONO % 4.7 % (0.0-5.0); NEUTROPHILS # 6.9 10^3/uL (1.8-7.7); PLATELET COUNT, AUTOMATED 199 10^3/uL (150-450); RED BLOOD COUNT 3.73 10^6/uL (4.00-5.40); RED CELL DISTRIBUTION WIDTH 14.8 % (11.5-14.5); WHITE BLOOD COUNT 8.4 10^3/uL (4.0-10.0)
[2018-07-14 09:46] LABS: INR 1.07
[2018-07-14 09:47] LABS: PARTIAL THROMBOPLASTIN TIME 30.5 SECONDS (25.4-37.6)
[2018-07-14 09:51] LABS: ANION GAP 9 MEQ/L (8-16); BLOOD UREA NITROGEN 53 MG/DL (7-18); CALCIUM LEVEL 8.5 MG/DL (8.5-10.1); CARBON DIOXIDE LEVEL 20 MEQ/L (21-32); CHLORIDE LEVEL 110 MEQ/L (98-107); CK-MB VALUE MASS 1.5 NG/ML (<3.6); CPK CREATINE PHOSPHOKINASE 140 U/L (26-192); CREATININE FOR GFR 2.92 MG/DL (0.55-1.30); GLOMERULAR FILTRATION RATE 18.5 (>58); MB/CK RELATIVE INDEX 1.07 (< OR =4); SODIUM LEVEL 139 MEQ/L (136-145); TROPONIN I < 0.02 NG/ML (< 0.10)
[2018-07-14 10:03] LABS: GLUCOSE, FASTING 416 MG/DL (70-100)
[2018-07-14 10:04] LABS: POTASSIUM SERUM 6.1 MEQ/L (3.5-5.1)
[2018-07-14 10:32] LABS: FREE T4 0.73 NG/DL (0.76-1.46)
[2018-07-14 10:32] LABS: CARBAMAZEPINE (TEGRETOL) LEVEL 7.5 UG/ML (4.0-10.0)
[2018-07-14] MEDS: NS 1,000 ML IV (10:37)
== END 2018-07-14 10:56 | disposition short-term general hospital (02) ==
LOC: M ED 08:25
DX: R51 Headache (principal); R53.1 Weakness; E10.9 Type 1 diabetes mellitus without complications; I12.9 Hypertensive chronic kidney disease with stage 1 through stage 4 chronic kidney disease, or unspecified chronic kidney disease; N18.9 Chronic kidney disease, unspecified; E07.9 Disorder of thyroid, unspecified; F33.9 Major depressive disorder, recurrent, unspecified; F41.1 Generalized anxiety disorder; G47.33 Obstructive sleep apnea (adult) (pediatric); Z86.73 Personal history of transient ischemic attack (TIA), and cerebral infarction without residual deficits; Z79.899 Other long term (current) drug therapy; Z79.890 Hormone replacement therapy; Z79.82 Long term (current) use of aspirin; Z79.4 Long term (current) use of insulin; Z87.891 Personal history of nicotine dependence
CPT/HCPCS: 71045

== ENCOUNTER 2018-07-22 09:03 | Inpatient (IN) | payer MEDICARE, MEDICAID ==
[2018-07-22 12:28] LABS: BEDSIDE GLUCOSE 349 MG/DL (70-105)
[2018-07-22 13:22] LABS: VENOUS BASE EXCESS -2.5 (-2.0-2.0); VENOUS HCO3 23.6 MEQ/L (23.0-27.0); VENOUS O2 SATURATION 99.1 % (60.0-80.0); VENOUS PARTIAL PRESSURE CO2 46.1 mmHg (38.0-50.0); VENOUS PARTIAL PRESSURE O2 182.6 mmHg (30.0-50.0); VENOUS PH 7.327 UNITS (7.330-7.430); VENOUS STANDARD HCO3 22.4 MEQ/L
[2018-07-22 13:42] LABS: AMORPHOUS SEDIMENT RFX SMALL (NEGATIVE); KETONE, URINE AUTO RFX NEGATIVE (NEGATIVE); MUCUS, URINE RFX SMALL (NEGATIVE); NITRITE, URINE AUTO RFX NEGATIVE (NEGATIVE); RBC, URINE AUTO RFX 6 /HPF (0-3); SPECIFIC GRAVITY UR AUTO RFX 1.008 (1.002-1.035); SQUAM EPITHELIAL CELL UR AURFX 2 /HPF (0-6)
[2018-07-22 13:43] LABS: LEUKOCYTE ESTERASE UR AUTO RFX 3+ (NEGATIVE); WBC, URINE AUTO RFX 67 /HPF (0-3)
[2018-07-22] MEDS: cefTRIAXone SOD 1 GM in D5W MINI-BAG PLUS 50 ML IV (15:02)
[2018-07-22] MEDS: NS 1,000 ML IV ×2 (15:03→18:36)
[2018-07-22 15:10] LABS: BASO % 0.6 % (0.0-1.0); EOS # 0.1 10^3/uL (0.0-0.50); EOS % 2.1 % (0.0-3.0); HEMATOCRIT 31.5 % (36.0-47.0); IMMATURE GRANULOCYTE % 0.2 % (0-3.0); LYMPH # 1.5 10^3/uL (1.5-4.5); LYMPH % 28.6 % (24.0-44.0); MEAN CORPUSCULAR HEMOGLOBIN 29.2 pg (27.0-33.0); MEAN CORPUSCULAR HGB CONC 31.7 g/dl (32.0-36.5); MEAN CORPUSCULAR VOLUME 91.8 fl (80.0-96.0); MONO # 0.3 10^3/uL (0.0-0.8); MONO % 6.6 % (0.0-5.0); NEUTROPHILS # 3.2 10^3/uL (1.8-7.7); NEUTROPHILS % 61.9 % (36.0-66.0); PLATELET COUNT, AUTOMATED 212 10^3/uL (150-450); RED BLOOD COUNT 3.43 10^6/uL (4.00-5.40); RED CELL DISTRIBUTION WIDTH 14.1 % (11.5-14.5); WHITE BLOOD COUNT 5.1 10^3/uL (4.0-10.0)
[2018-07-22 15:20] LABS: INR 1.09; PROTHROMBIN TIME 14.2 SECONDS (12.1-14.4)
[2018-07-22 15:21] LABS: PARTIAL THROMBOPLASTIN TIME 33.4 SECONDS (25.4-37.6)
[2018-07-22 15:34] LABS: VENOUS BASE EXCESS -1.7 (-2.0-2.0); VENOUS HCO3 25.3 MEQ/L (23.0-27.0); VENOUS PARTIAL PRESSURE O2 98.7 mmHg (30.0-50.0); VENOUS PH 7.289 UNITS (7.330-7.430)
[2018-07-22 15:35] LABS: AMMONIA 25 uMOL/L (<32)
[2018-07-22 15:38] LABS: LACTIC ACID SEPSIS PROTOCOL 0.9 MMOL/L (0.4-2.0)
[2018-07-22 15:41] LABS: ALBUMIN 3.7 GM/DL (3.2-5.2); ALBUMIN/GLOBULIN RATIO 0.88 (1.00-1.93); ALKALINE PHOSPHATASE 120 U/L (45-117); ALT/SGPT 59 U/L (12-78); ANION GAP 6 MEQ/L (8-16); AST/SGOT 43 U/L (7-37); BILIRUBIN,DIRECT < 0.1 MG/DL (0.0-0.2); BILIRUBIN,TOTAL 0.2 MG/DL (0.2-1.0); BLOOD UREA NITROGEN 47 MG/DL (7-18); CARBON DIOXIDE LEVEL 25 MEQ/L (21-32); CHLORIDE LEVEL 107 MEQ/L (98-107); CK-MB VALUE MASS < 1.0 NG/ML (<3.6); CPK CREATINE PHOSPHOKINASE 72 U/L (26-192); CREATININE FOR GFR 2.63 MG/DL (0.55-1.30); GLOMERULAR FILTRATION RATE 20.8 (>58); GLUCOSE, FASTING 329 MG/DL (70-100); MB/CK RELATIVE INDEX 1.39 (< OR =4); POTASSIUM SERUM 5.3 MEQ/L (3.5-5.1); SODIUM LEVEL 138 MEQ/L (136-145); TOTAL PROTEIN 7.9 GM/DL (6.4-8.2); TROPONIN I < 0.02 NG/ML (< 0.10)
[2018-07-22 16:56] LABS: ESTIMATED AVERAGE GLUCOSE 206 MG/DL (60-110); HEMOGLOBIN A1c 8.8 %
[2018-07-22] MEDS ORDERED: DEXTROSE 50% 50 ML SYRINGE IV (17:15)
[2018-07-22] MEDS ORDERED: GLUCOSE 4 GM CHEW TABLET PO (17:15)
[2018-07-22] MEDS ORDERED: GLUCAGON FOR INJ 1 MG VIAL (J1610) SC (17:15)
[2018-07-22] MEDS ORDERED: ONDANSETRON 4MG/2ML VIAL (J2405) IV (17:15)
[2018-07-22 17:51] LABS: FREE THYROXINE INDEX 2.2 % (1.3-4.8); T UPTAKE 31 % (30-39); THYROXINE (T4) 7.2 UG/DL (4.5-12.0)
[2018-07-22 18:12] LABS: BEDSIDE GLUCOSE 332 MG/DL (70-105)
[2018-07-22 18:30] LABS: ANION GAP 6 MEQ/L (8-16); BLOOD UREA NITROGEN 46 MG/DL (7-18); CALCIUM LEVEL 8.8 MG/DL (8.5-10.1); CARBON DIOXIDE LEVEL 26 MEQ/L (21-32); CHLORIDE LEVEL 107 MEQ/L (98-107); CK-MB VALUE MASS < 1.0 NG/ML (<3.6); CPK CREATINE PHOSPHOKINASE 65 U/L (26-192); CREATININE FOR GFR 2.57 MG/DL (0.55-1.30); GLOMERULAR FILTRATION RATE 21.4 (>58); GLUCOSE, FASTING 344 MG/DL (70-100); MB/CK RELATIVE INDEX 1.54 (< OR =4); POTASSIUM SERUM 4.8 MEQ/L (3.5-5.1); SODIUM LEVEL 139 MEQ/L (136-145); TROPONIN I < 0.02 NG/ML (< 0.10)
[2018-07-22] MEDS: LORazepam 2 MG/ML VIAL (J2060) IV (18:37)
[2018-07-22] MEDS: hydrALAZINE INJ 20 MG/ML VIAL IV (18:37)
[2018-07-22] MEDS: HumaLOG INSULIN (NovoLOG) PER UNIT SC ×2 (18:37→22:10)
[2018-07-22] MEDS: CARVedilol 12.5 MG TAB PO (18:38)
[2018-07-22] MEDS ORDERED: INFLUENZA QUADRIVALENT PF VACCINE 0.5ML SYRINGE (90686) IM (18:45)
[2018-07-22 19:42] LABS: AMPHETAMINES LEVEL URINE NEGATIVE (NEGATIVE); BARBITURATES URINE NEGATIVE (NEGATIVE); BENZODIAZEPINES URINE NEGATIVE (NEGATIVE); CANNABINOIDS URINE NEGATIVE (NEGATIVE); COCAINE METABOLITE URINE NEGATIVE (NEGATIVE); METHADONE URINE NEGATIVE (NEGATIVE); OPIATES URINE NEGATIVE (NEGATIVE); PHENCYCLIDINE URINE NEGATIVE (NEGATIVE)
[2018-07-22 19:46] LABS: CARBAMAZEPINE (TEGRETOL) LEVEL 5.8 UG/ML (4.0-10.0)
[2018-07-22] MEDS ORDERED: LEVEMIR (INSULIN DETEMIR) 1 UNITS/0.01ML SC (21:00)
[2018-07-22] MEDS ORDERED: LISINOPRIL 10 MG TAB PO (21:00)
[2018-07-22] MEDS: NS 500 ML IV (21:45)
[2018-07-22] MEDS: GABAPENTIN 300 MG CAP PO (22:08)
[2018-07-22] MEDS: ROSUVASTATIN 10 MG TAB (CRESTOR) PO (22:08)
[2018-07-22] MEDS: CLOPIDOGREL 75 MG TAB PO (22:08)
[2018-07-22] MEDS: SENOKOT S TAB PO (22:08)
[2018-07-22] MEDS: HEPARIN SOD (PORCINE) 5000 UNITS/ML VIAL SQ (22:09)
[2018-07-22] MEDS: carBAMazepine 200 MG TAB PO (22:31)
[2018-07-22] MEDS: LEVEMIR (INSULIN DETEMIR) 1 UNITS/0.01ML SC (22:32)
[2018-07-23 00:08] LABS: BEDSIDE GLUCOSE 336 MG/DL (70-105)
[2018-07-23 00:18] LABS: CK-MB VALUE MASS < 1.0 NG/ML (<3.6); CPK CREATINE PHOSPHOKINASE 95 U/L (26-192); MB/CK RELATIVE INDEX 1.05 (< OR =4); TROPONIN I < 0.02 NG/ML (< 0.10)
[2018-07-23] MEDS: NS 1,000 ML IV (03:24)
[2018-07-23] MEDS: NORCO, ANEXSIA 5/325MG TABLET (HYDROcodone/ACETAMINOPHEN) PO (03:38)
[2018-07-23 05:25] LABS: HEMATOCRIT 28.4 % (36.0-47.0); HEMOGLOBIN 9.1 g/dl (12.0-15.5); MEAN CORPUSCULAR HEMOGLOBIN 29.1 pg (27.0-33.0); MEAN CORPUSCULAR VOLUME 90.7 fl (80.0-96.0); PLATELET COUNT, AUTOMATED 164 10^3/uL (150-450); RED BLOOD COUNT 3.13 10^6/uL (4.00-5.40); RED CELL DISTRIBUTION WIDTH 14.2 % (11.5-14.5); WHITE BLOOD COUNT 6.7 10^3/uL (4.0-10.0)
[2018-07-23 05:51] LABS: ALBUMIN/GLOBULIN RATIO 0.75 (1.00-1.93); ALKALINE PHOSPHATASE 101 U/L (45-117); ALT/SGPT 46 U/L (12-78); ANION GAP 7 MEQ/L (8-16); AST/SGOT 35 U/L (7-37); BILIRUBIN,TOTAL 0.1 MG/DL (0.2-1.0); BLOOD UREA NITROGEN 40 MG/DL (7-18); CALCIUM LEVEL 8.4 MG/DL (8.5-10.1); CARBON DIOXIDE LEVEL 23 MEQ/L (21-32); CHLORIDE LEVEL 113 MEQ/L (98-107); CREATININE FOR GFR 2.42 MG/DL (0.55-1.30); GLOMERULAR FILTRATION RATE 22.9 (>58); GLUCOSE, FASTING 121 MG/DL (70-100); POTASSIUM SERUM 4.8 MEQ/L (3.5-5.1); SODIUM LEVEL 143 MEQ/L (136-145)
[2018-07-23] MEDS: LEVOTHYROXINE 75MCG TABLET (0.075MG) PO (06:05)
[2018-07-23] MEDS: LORazepam 1 MG TAB PO (07:53)
[2018-07-23] MEDS: SENOKOT S TAB PO ×2 (09:00→20:03)
[2018-07-23] MEDS: CARVedilol 12.5 MG TAB PO ×2 (09:00→20:04)
[2018-07-23] MEDS ORDERED: CLOPIDOGREL 75 MG TAB PO (09:00)
[2018-07-23] MEDS: HumaLOG INSULIN (NovoLOG) PER UNIT SC ×4 (09:20→20:02)
[2018-07-23 09:35] LABS: BEDSIDE GLUCOSE 98 MG/DL (70-105)
[2018-07-23] MEDS: CitaloPRAM (CeleXA) 20 MG TAB PO (09:45)
[2018-07-23] MEDS: ASPIRIN 325 MG TAB PO (09:45)
[2018-07-23] MEDS: GABAPENTIN 300 MG CAP PO ×2 (09:45→20:04)
[2018-07-23] MEDS: carBAMazepine 200 MG TAB PO ×2 (09:45→20:04)
[2018-07-23] MEDS: FERROUS GLUCONATE 324 MG TAB PO (09:45)
[2018-07-23] MEDS: CALCITRIOL 0.25 MCG CAP (S0169) PO (09:45)
[2018-07-23] MEDS: HEPARIN SOD (PORCINE) 5000 UNITS/ML VIAL SQ ×2 (09:47→20:05)
[2018-07-23] MEDS ORDERED: SLF 3 ML SYR IV (14:45)
[2018-07-23] MEDS: cefTRIAXone SOD 1 GM in D5W MINI-BAG PLUS 50 ML IV (14:50)
[2018-07-23 17:10] LABS: BEDSIDE GLUCOSE 363 MG/DL (70-105)
[2018-07-23] MEDS: ROSUVASTATIN 10 MG TAB (CRESTOR) PO (20:04)
[2018-07-23] MEDS: CLOPIDOGREL 75 MG TAB PO (20:04)
[2018-07-23] MEDS: LEVEMIR (INSULIN DETEMIR) 1 UNITS/0.01ML SC (20:05)
[2018-07-23] MEDS: SLF 3 ML SYR IV (20:07)
[2018-07-23 20:08] LABS: BEDSIDE GLUCOSE 281 MG/DL (70-105)
[2018-07-23] MEDS ORDERED: LEVEMIR (INSULIN DETEMIR) 1 UNITS/0.01ML SC (21:00)
[2018-07-24] MEDS: SLF 3 ML SYR IV ×2 (05:29→13:09)
[2018-07-24] MEDS: LEVOTHYROXINE 75MCG TABLET (0.075MG) PO (05:41)
[2018-07-24 05:46] LABS: HEMATOCRIT 28.5 % (36.0-47.0); MEAN CORPUSCULAR HEMOGLOBIN 28.8 pg (27.0-33.0); MEAN CORPUSCULAR HGB CONC 31.6 g/dl (32.0-36.5); MEAN CORPUSCULAR VOLUME 91.1 fl (80.0-96.0); PLATELET COUNT, AUTOMATED 202 10^3/uL (150-450); RED BLOOD COUNT 3.13 10^6/uL (4.00-5.40); WHITE BLOOD COUNT 4.6 10^3/uL (4.0-10.0)
[2018-07-24 06:16] LABS: ALBUMIN/GLOBULIN RATIO 0.79 (1.00-1.93); ALKALINE PHOSPHATASE 104 U/L (45-117); ALT/SGPT 61 U/L (12-78); ANION GAP 8 MEQ/L (8-16); AST/SGOT 63 U/L (7-37); BILIRUBIN,TOTAL 0.2 MG/DL (0.2-1.0); BLOOD UREA NITROGEN 44 MG/DL (7-18); CALCIUM LEVEL 8.5 MG/DL (8.5-10.1); CARBON DIOXIDE LEVEL 23 MEQ/L (21-32); CHLORIDE LEVEL 110 MEQ/L (98-107); GLOMERULAR FILTRATION RATE 24.3 (>58); GLUCOSE, FASTING 115 MG/DL (70-100); MAGNESIUM LEVEL 1.9 MG/DL (1.8-2.4); SODIUM LEVEL 141 MEQ/L (136-145); TOTAL PROTEIN 6.8 GM/DL (6.4-8.2)
[2018-07-24] MEDS: CARVedilol 12.5 MG TAB PO ×2 (09:00→09:33)
[2018-07-24] MEDS: FERROUS GLUCONATE 324 MG TAB PO (09:33)
[2018-07-24] MEDS: GABAPENTIN 300 MG CAP PO (09:33)
[2018-07-24] MEDS: carBAMazepine 200 MG TAB PO (09:33)
[2018-07-24] MEDS: CALCITRIOL 0.25 MCG CAP (S0169) PO (09:33)
[2018-07-24] MEDS: HEPARIN SOD (PORCINE) 5000 UNITS/ML VIAL SQ (09:34)
[2018-07-24] MEDS: SENOKOT S TAB PO (09:34)
[2018-07-24] MEDS: CitaloPRAM (CeleXA) 20 MG TAB PO (09:34)
[2018-07-24] MEDS: ASPIRIN 325 MG TAB PO (09:34)
[2018-07-24] MEDS: HumaLOG INSULIN (NovoLOG) PER UNIT SC ×3 (10:23→18:00)
[2018-07-24 11:34] LABS: BEDSIDE GLUCOSE 212 MG/DL (70-105)
[2018-07-24 12:13] LABS: BEDSIDE GLUCOSE 187 MG/DL (70-105)
[2018-07-24] MEDS: cefTRIAXone SOD 1 GM in D5W MINI-BAG PLUS 50 ML IV (15:44)
[2018-07-24] MEDS: ACETAMINOPHEN TAB 650MG DOSE (2X325MG) PO (16:58)
[2018-07-24 17:56] LABS: BEDSIDE GLUCOSE 444 MG/DL (70-105)
== END 2018-07-24 19:25 | disposition home health service (06) | DRG 65 ==
LOC: M ED 09:03 → M PCU 07-23 22:54 → M ED INP 17:12 → M ICU 21:25
PROVIDERS: Hospitalist
DX: I63.9 Cerebral infarction, unspecified (principal); N39.0 Urinary tract infection, site not specified; N18.4 Chronic kidney disease, stage 4 (severe); E10.22 Type 1 diabetes mellitus with diabetic chronic kidney disease; E66.9 Obesity, unspecified; E87.5 Hyperkalemia; E10.319 Type 1 diabetes mellitus with unspecified diabetic retinopathy without macular edema; E10.21 Type 1 diabetes mellitus with diabetic nephropathy; R53.1 Weakness; B96.20 Unspecified Escherichia coli [E. coli] as the cause of diseases classified elsewhere; H53.2 Diplopia; D63.1 Anemia in chronic kidney disease; I16.0 Hypertensive urgency; I69.322 Dysarthria following cerebral infarction; E10.51 Type 1 diabetes mellitus with diabetic peripheral angiopathy without gangrene; E10.43 Type 1 diabetes mellitus with diabetic autonomic (poly)neuropathy; I12.9 Hypertensive chronic kidney disease with stage 1 through stage 4 chronic kidney disease, or unspecified chronic kidney disease; E03.9 Hypothyroidism, unspecified; G47.33 Obstructive sleep apnea (adult) (pediatric); F41.9 Anxiety disorder, unspecified; E10.65 Type 1 diabetes mellitus with hyperglycemia; Z79.82 Long term (current) use of aspirin; Z79.4 Long term (current) use of insulin; Z79.899 Other long term (current) drug therapy; Z87.891 Personal history of nicotine dependence

== ENCOUNTER 2018-08-06 10:40 | Emergency (ER) | payer MEDICARE, MEDICAID ==
[2018-08-06 11:59] LABS: BASO % 0.5 % (0.0-1.0); EOS # 0.3 10^3/uL (0.0-0.50); HEMATOCRIT 30.3 % (36.0-47.0); HEMOGLOBIN 9.8 g/dl (12.0-15.5); IMMATURE GRANULOCYTE % 0.3 % (0-3.0); LYMPH # 1.5 10^3/uL (1.5-4.5); LYMPH % 19.4 % (24.0-44.0); MEAN CORPUSCULAR HEMOGLOBIN 29.7 pg (27.0-33.0); MEAN CORPUSCULAR HGB CONC 32.3 g/dl (32.0-36.5); MEAN CORPUSCULAR VOLUME 91.8 fl (80.0-96.0); MONO # 0.6 10^3/uL (0.0-0.8); MONO % 7.7 % (0.0-5.0); NEUTROPHILS # 5.2 10^3/uL (1.8-7.7); NEUTROPHILS % 68.1 % (36.0-66.0); PLATELET COUNT, AUTOMATED 186 10^3/uL (150-450); RED CELL DISTRIBUTION WIDTH 14.2 % (11.5-14.5); WHITE BLOOD COUNT 7.7 10^3/uL (4.0-10.0)
[2018-08-06 12:27] LABS: ANION GAP 8 MEQ/L (8-16); BLOOD UREA NITROGEN 43 MG/DL (7-18); CALCIUM LEVEL 8.1 MG/DL (8.5-10.1); CARBON DIOXIDE LEVEL 23 MEQ/L (21-32); CHLORIDE LEVEL 109 MEQ/L (98-107); CREATININE FOR GFR 2.51 MG/DL (0.55-1.30); GLUCOSE, FASTING 146 MG/DL (70-100); POTASSIUM SERUM 5.3 MEQ/L (3.5-5.1); SODIUM LEVEL 140 MEQ/L (136-145)
[2018-08-06 12:38] LABS: BEDSIDE GLUCOSE 197 MG/DL (70-105)
[2018-08-10 12:55] LABS: BEDSIDE GLUCOSE 103 MG/DL (70-105)
== END 2018-08-06 14:18 | disposition home or self-care (01) ==
LOC: M ED 10:40
DX: E10.649 Type 1 diabetes mellitus with hypoglycemia without coma (principal); I12.9 Hypertensive chronic kidney disease with stage 1 through stage 4 chronic kidney disease, or unspecified chronic kidney disease; N18.4 Chronic kidney disease, stage 4 (severe); E03.9 Hypothyroidism, unspecified; K31.84 Gastroparesis; Z86.73 Personal history of transient ischemic attack (TIA), and cerebral infarction without residual deficits; Z79.899 Other long term (current) drug therapy; Z79.82 Long term (current) use of aspirin; Z79.890 Hormone replacement therapy; F17.210 Nicotine dependence, cigarettes, uncomplicated
CPT/HCPCS: 71045

== ENCOUNTER → 2018-08-21 | Outpatient (CLI) | payer MEDICARE, MEDICAID | LOC: M SLEEP HO 13:41 | DX: G47.33 Obstructive sleep apnea (adult) (pediatric) (principal) | CPT/HCPCS: G0399 ==

== ENCOUNTER 2018-09-10 17:00 | Inpatient (IN) | payer MEDICARE, MEDICAID, BC ==
[2018-09-10] MEDS ORDERED: LABETALOL HCL 100 MG/20 ML VIAL IV (17:27)
[2018-09-10] MEDS: ONDANSETRON 4MG/2ML VIAL (J2405) IV (17:47)
[2018-09-10] MEDS: HumaLOG INSULIN (NovoLOG) PER UNIT SC (17:49)
[2018-09-10] MEDS: NS 1,000 ML IV (17:49)
[2018-09-10] MEDS: MORPHINE 2 MG/ML 1ML SYRINGE (J2270) IV (17:51)
[2018-09-10 17:52] LABS: ABG HCO3 15.8 MEQ/L (22.0-26.0); ABG O2 SATURATION 97.3 % (95.0-99.0); ABG PARTIAL PRESSURE CO2 27.4 mmHg (35.0-45.0); ABG PARTIAL PRESSURE O2 97.2 mmHg (75.0-100.0); ABG TOTAL CO2 16.6 MEQ/L (22.0-29.0); ABG pH (ARTERIAL) 7.379 UNITS (7.350-7.450)
[2018-09-10] MEDS: METOCLOPRAMIDE INJ 10MG/2ML VIAL (J2765) IV (17:58)
[2018-09-10] MEDS ORDERED: PROMETHAZINE INJ 25 MG/ML VIAL (J2550) As Ordered (18:25)
[2018-09-10] MEDS: PROMETHAZINE INJ 25 MG/ML VIAL (J2550) IV (18:30)
[2018-09-10 18:45] LABS: CONTROL LINE HCG INT CTR LINE PRESENT; HCG, SERUM QUALITATIVE NEGATIVE (NEGATIVE)
[2018-09-10 18:52] LABS: BEDSIDE GLUCOSE 388 MG/DL (70-105)
[2018-09-10 18:53] LABS: LACTIC ACID SEPSIS PROTOCOL 1.7 MMOL/L (0.4-2.0)
[2018-09-10 18:57] LABS: BASO % 0.5 % (0.0-1.0); EOS % 0.4 % (0.0-3.0); HEMATOCRIT 35.7 % (36.0-47.0); HEMOGLOBIN 11.8 g/dl (12.0-15.5); IMMATURE GRANULOCYTE % 0.8 % (0-3.0); LYMPH # 0.7 10^3/uL (1.5-4.5); LYMPH % 8.9 % (24.0-44.0); MEAN CORPUSCULAR HEMOGLOBIN 29.5 pg (27.0-33.0); MEAN CORPUSCULAR HGB CONC 33.1 g/dl (32.0-36.5); MEAN CORPUSCULAR VOLUME 89.3 fl (80.0-96.0); MONO # 0.2 10^3/uL (0.0-0.8); MONO % 2.8 % (0.0-5.0); NEUTROPHILS # 6.9 10^3/uL (1.8-7.7); NEUTROPHILS % 86.6 % (36.0-66.0); PLATELET COUNT, AUTOMATED 166 10^3/uL (150-450); RED CELL DISTRIBUTION WIDTH 12.8 % (11.5-14.5)
[2018-09-10 19:09] LABS: PROTHROMBIN TIME 14.3 SECONDS (12.1-14.4)
[2018-09-10 19:10] LABS: PARTIAL THROMBOPLASTIN TIME 29.3 SECONDS (25.4-37.6)
[2018-09-10 19:13] LABS: ALBUMIN 4.3 GM/DL (3.2-5.2); ALBUMIN/GLOBULIN RATIO 1.02 (1.00-1.93); ALKALINE PHOSPHATASE 123 U/L (45-117); ALT/SGPT 78 U/L (12-78); AMYLASE 70 U/L (25-115); ANION GAP 14 MEQ/L (8-16); AST/SGOT 41 U/L (7-37); BILIRUBIN,DIRECT 0.1 MG/DL (0.0-0.2); BILIRUBIN,TOTAL 0.3 MG/DL (0.2-1.0); BLOOD UREA NITROGEN 55 MG/DL (7-18); CALCIUM LEVEL 9.1 MG/DL (8.5-10.1); CARBON DIOXIDE LEVEL 18 MEQ/L (21-32); CHLORIDE LEVEL 104 MEQ/L (98-107); CPK CREATINE PHOSPHOKINASE 109 U/L (26-192); GLOMERULAR FILTRATION RATE 19.4 (>58); GLUCOSE, FASTING 449 MG/DL (70-100); LIPASE 236 U/L (73-393); MB/CK RELATIVE INDEX 1.19 (< OR =4); POTASSIUM SERUM 5.3 MEQ/L (3.5-5.1); SODIUM LEVEL 136 MEQ/L (136-145); TOTAL PROTEIN 8.5 GM/DL (6.4-8.2); TROPONIN I < 0.02 NG/ML (< 0.10)
[2018-09-10] MEDS: NS 500 ML IV (19:30)
[2018-09-10 19:55] LABS: BEDSIDE GLUCOSE 351 MG/DL (70-105)
[2018-09-10 20:30] LABS: ACETONE/KETONE 34.94 MG/DL (<2.81)
[2018-09-10] MEDS: LORazepam 2 MG/ML VIAL (J2060) IV ×2 (20:48→21:09)
[2018-09-10] MEDS: LEVEMIR (INSULIN DETEMIR) 1 UNITS/0.01ML SC ×2 (21:00→22:02)
[2018-09-10] MEDS: GABAPENTIN 300 MG CAP PO (21:00)
[2018-09-10] MEDS: ROSUVASTATIN 10 MG TAB (CRESTOR) PO (21:00)
[2018-09-10 21:51] LABS: BEDSIDE GLUCOSE 306 MG/DL (70-105)
[2018-09-10 23:33] LABS: BEDSIDE GLUCOSE 292 MG/DL (70-105)
[2018-09-10] MEDS ORDERED: ENTER DRUG NAME HERE (PATIENT'S OWN MED) PO (23:45)
[2018-09-10 23:51] LABS: KETONE, URINE AUTO RFX 1+ mg/dL (NEGATIVE); LEUKOCYTE ESTERASE UR AUTO RFX NEGATIVE (NEGATIVE); NITRITE, URINE AUTO RFX NEGATIVE (NEGATIVE); RBC, URINE AUTO RFX 1 /HPF (0-3); SPECIFIC GRAVITY UR AUTO RFX 1.013 (1.002-1.035); SQUAM EPITHELIAL CELL UR AURFX 0 /HPF (0-6); WBC, URINE AUTO RFX 1 /HPF (0-3)
[2018-09-11] MEDS ORDERED: hydrALAZINE INJ 20 MG/ML VIAL IV
[2018-09-11] MEDS ORDERED: ACETAMINOPHEN TAB 650MG DOSE (2X325MG) PO
[2018-09-11] MEDS ORDERED: ONDANSETRON 4MG/2ML VIAL (J2405) IV
[2018-09-11] MEDS ORDERED: METOCLOPRAMIDE INJ 10MG/2ML VIAL (J2765) IV
[2018-09-11 01:11] LABS: ANION GAP 15 MEQ/L (8-16); BLOOD UREA NITROGEN 50 MG/DL (7-18); CALCIUM LEVEL 8.4 MG/DL (8.5-10.1); CARBON DIOXIDE LEVEL 16 MEQ/L (21-32); CHLORIDE LEVEL 111 MEQ/L (98-107); GLOMERULAR FILTRATION RATE 21.1 (>58); GLUCOSE, FASTING 285 MG/DL (70-100); MAGNESIUM LEVEL 2.3 MG/DL (1.8-2.4); POTASSIUM SERUM 5.2 MEQ/L (3.5-5.1); SODIUM LEVEL 142 MEQ/L (136-145)
[2018-09-11] MEDS: NS 1,000 ML IV (01:31)
[2018-09-11] MEDS: carBAMazepine 200 MG TAB PO ×3 (01:44→20:26)
[2018-09-11] MEDS: CARVedilol 12.5 MG TAB PO ×3 (01:45→20:25)
[2018-09-11] MEDS: EZETIMIBE 10 MG TAB (ZETIA) PO ×2 (01:46→20:26)
[2018-09-11 01:51] LABS: BEDSIDE GLUCOSE 273 MG/DL (70-105)
[2018-09-11] MEDS ORDERED: INSULIN IV RATE CHANGE DOCUMENTATION ML/HR XX (02:15)
[2018-09-11] MEDS: NS 0.45% 1,000 ML IV (02:45)
[2018-09-11 02:49] LABS: BEDSIDE GLUCOSE 264 MG/DL (70-105)
[2018-09-11] MEDS: INSULIN HUMAN REGULAR 100 UNITS in NS 99 ML IV (02:50)
[2018-09-11 03:59] LABS: BEDSIDE GLUCOSE 245 MG/DL (70-105)
[2018-09-11 05:14] LABS: BEDSIDE GLUCOSE 172 MG/DL (70-105)
[2018-09-11 05:58] LABS: HEMATOCRIT 31.2 % (36.0-47.0); HEMOGLOBIN 10.3 g/dl (12.0-15.5); MEAN CORPUSCULAR HEMOGLOBIN 29.8 pg (27.0-33.0); MEAN CORPUSCULAR VOLUME 90.2 fl (80.0-96.0); PLATELET COUNT, AUTOMATED 182 10^3/uL (150-450); RED BLOOD COUNT 3.46 10^6/uL (4.00-5.40); WHITE BLOOD COUNT 7.6 10^3/uL (4.0-10.0)
[2018-09-11 06:22] LABS: ANION GAP 8 MEQ/L (8-16); BLOOD UREA NITROGEN 49 MG/DL (7-18); CALCIUM LEVEL 8.8 MG/DL (8.5-10.1); CARBON DIOXIDE LEVEL 22 MEQ/L (21-32); CHLORIDE LEVEL 115 MEQ/L (98-107); GLOMERULAR FILTRATION RATE 21.1 (>58); GLUCOSE, FASTING 152 MG/DL (70-100); MAGNESIUM LEVEL 2.3 MG/DL (1.8-2.4); POTASSIUM SERUM 4.1 MEQ/L (3.5-5.1); SODIUM LEVEL 145 MEQ/L (136-145)
[2018-09-11] MEDS: HEPARIN SOD (PORCINE) 5000 UNITS/ML VIAL SC ×3 (06:30→22:04)
[2018-09-11] MEDS: LEVOTHYROXINE 75MCG TABLET (0.075MG) PO (06:30)
[2018-09-11 06:42] LABS: BEDSIDE GLUCOSE 94 MG/DL (70-105)
[2018-09-11 08:01] LABS: BEDSIDE GLUCOSE 70 MG/DL (70-105)
[2018-09-11] MEDS ORDERED: DEXTROSE 50% 50 ML SYRINGE IV (09:00)
[2018-09-11] MEDS ORDERED: GLUCAGON FOR INJ 1 MG VIAL (J1610) SC (09:00)
[2018-09-11] MEDS: HumaLOG INSULIN (NovoLOG) PER UNIT SC ×4 (09:00→20:27)
[2018-09-11] MEDS ORDERED: GLUCOSE 4 GM CHEW TABLET PO (09:00)
[2018-09-11 09:48] LABS: ANION GAP 8 MEQ/L (8-16); BLOOD UREA NITROGEN 51 MG/DL (7-18); CALCIUM LEVEL 8.9 MG/DL (8.5-10.1); CARBON DIOXIDE LEVEL 22 MEQ/L (21-32); CHLORIDE LEVEL 113 MEQ/L (98-107); CREATININE FOR GFR 2.62 MG/DL (0.55-1.30); GLOMERULAR FILTRATION RATE 20.9 (>58); GLUCOSE, FASTING 64 MG/DL (70-100); POTASSIUM SERUM 4.6 MEQ/L (3.5-5.1); SODIUM LEVEL 143 MEQ/L (136-145)
[2018-09-11] MEDS: KCL 20MEQ IN D5/0.45NS 1000ML 1,000 ML IV (10:19)
[2018-09-11] MEDS: GABAPENTIN 300 MG CAP PO ×2 (10:22→20:25)
[2018-09-11] MEDS: CitaloPRAM (CeleXA) 20 MG TAB PO (10:23)
[2018-09-11] MEDS: CETIRIZINE (ZyrTEC) 10 MG TAB PO (10:23)
[2018-09-11] MEDS: CLOPIDOGREL 75 MG TAB PO (10:23)
[2018-09-11] MEDS ORDERED: HumaLOG INSULIN (NovoLOG) PER UNIT SC ×2 (12:00→21:00)
[2018-09-11 12:09] LABS: BEDSIDE GLUCOSE 119 MG/DL (70-105)
[2018-09-11] MEDS: CALCITRIOL 0.25 MCG CAP (S0169) PO (12:53)
[2018-09-11] MEDS: FERROUS GLUCONATE 324 MG TAB PO (12:53)
[2018-09-11] MEDS: ASPIRIN ENTERIC 325 MG TAB PO (12:53)
[2018-09-11] MEDS: PANTOPRAZOLE 40MG TAB (PROTONIX) PO (12:55)
[2018-09-11 13:47] LABS: ANION GAP 11 MEQ/L (8-16); BLOOD UREA NITROGEN 42 MG/DL (7-18); CALCIUM LEVEL 8.3 MG/DL (8.5-10.1); CARBON DIOXIDE LEVEL 18 MEQ/L (21-32); CHLORIDE LEVEL 112 MEQ/L (98-107); CREATININE FOR GFR 2.65 MG/DL (0.55-1.30); GLOMERULAR FILTRATION RATE 20.6 (>58); GLUCOSE, FASTING 157 MG/DL (70-100); POTASSIUM SERUM 4.9 MEQ/L (3.5-5.1); SODIUM LEVEL 141 MEQ/L (136-145)
[2018-09-11 18:37] LABS: ANION GAP 8 MEQ/L (8-16); BLOOD UREA NITROGEN 45 MG/DL (7-18); CALCIUM LEVEL 8.3 MG/DL (8.5-10.1); CARBON DIOXIDE LEVEL 21 MEQ/L (21-32); CHLORIDE LEVEL 110 MEQ/L (98-107); CREATININE FOR GFR 2.85 MG/DL (0.55-1.30); GLUCOSE, FASTING 411 MG/DL (70-100); POTASSIUM SERUM 4.8 MEQ/L (3.5-5.1); SODIUM LEVEL 139 MEQ/L (136-145)
[2018-09-11 18:57] LABS: BEDSIDE GLUCOSE 476 MG/DL (70-105)
[2018-09-11 20:15] LABS: BEDSIDE GLUCOSE 421 MG/DL (70-105)
[2018-09-11] MEDS: ROSUVASTATIN 10 MG TAB (CRESTOR) PO (20:24)
[2018-09-11] MEDS: KCL 20MEQ IN 0.45NS 1000ML 1,000 ML IV (20:26)
[2018-09-11 21:54] LABS: ANION GAP 8 MEQ/L (8-16); BLOOD UREA NITROGEN 47 MG/DL (7-18); CALCIUM LEVEL 8.5 MG/DL (8.5-10.1); CARBON DIOXIDE LEVEL 23 MEQ/L (21-32); CHLORIDE LEVEL 109 MEQ/L (98-107); CREATININE FOR GFR 2.91 MG/DL (0.55-1.30); GLOMERULAR FILTRATION RATE 18.5 (>58); GLUCOSE, FASTING 320 MG/DL (70-100); POTASSIUM SERUM 4.6 MEQ/L (3.5-5.1); SODIUM LEVEL 140 MEQ/L (136-145)
[2018-09-12 00:07] LABS: BEDSIDE GLUCOSE 131 MG/DL (70-105)
[2018-09-12] MEDS: HumaLOG INSULIN (NovoLOG) PER UNIT SC ×6 (00:46→21:54)
[2018-09-12 04:03] LABS: BEDSIDE GLUCOSE 95 MG/DL (70-105)
[2018-09-12] MEDS: KCL 20MEQ IN 0.45NS 1000ML 1,000 ML IV (05:47)
[2018-09-12] MEDS: HEPARIN SOD (PORCINE) 5000 UNITS/ML VIAL SC ×3 (05:48→21:53)
[2018-09-12] MEDS: LEVOTHYROXINE 75MCG TABLET (0.075MG) PO (05:48)
[2018-09-12 07:32] LABS: HEMATOCRIT 29.8 % (36.0-47.0); HEMOGLOBIN 9.6 g/dl (12.0-15.5); MEAN CORPUSCULAR HEMOGLOBIN 29.8 pg (27.0-33.0); MEAN CORPUSCULAR HGB CONC 32.2 g/dl (32.0-36.5); MEAN CORPUSCULAR VOLUME 92.5 fl (80.0-96.0); PLATELET COUNT, AUTOMATED 141 10^3/uL (150-450); RED BLOOD COUNT 3.22 10^6/uL (4.00-5.40); RED CELL DISTRIBUTION WIDTH 12.9 % (11.5-14.5); WHITE BLOOD COUNT 6.8 10^3/uL (4.0-10.0)
[2018-09-12 08:03] LABS: BEDSIDE GLUCOSE 289 MG/DL (70-105)
[2018-09-12 08:17] LABS: ANION GAP 8 MEQ/L (8-16); BLOOD UREA NITROGEN 46 MG/DL (7-18); CALCIUM LEVEL 8.2 MG/DL (8.5-10.1); CARBON DIOXIDE LEVEL 20 MEQ/L (21-32); CHLORIDE LEVEL 111 MEQ/L (98-107); CREATININE FOR GFR 2.45 MG/DL (0.55-1.30); GLOMERULAR FILTRATION RATE 22.6 (>58); GLUCOSE, FASTING 244 MG/DL (70-100); POTASSIUM SERUM 5.5 MEQ/L (3.5-5.1); SODIUM LEVEL 139 MEQ/L (136-145)
[2018-09-12] MEDS: CLOPIDOGREL 75 MG TAB PO (09:34)
[2018-09-12] MEDS: CitaloPRAM (CeleXA) 20 MG TAB PO (09:34)
[2018-09-12] MEDS: CARVedilol 12.5 MG TAB PO ×2 (09:34→21:54)
[2018-09-12] MEDS: ASPIRIN ENTERIC 325 MG TAB PO (09:34)
[2018-09-12] MEDS: CALCITRIOL 0.25 MCG CAP (S0169) PO (09:34)
[2018-09-12] MEDS: PANTOPRAZOLE 40MG TAB (PROTONIX) PO (09:34)
[2018-09-12] MEDS: carBAMazepine 200 MG TAB PO ×2 (09:34→21:54)
[2018-09-12] MEDS: GABAPENTIN 300 MG CAP PO ×2 (09:34→21:53)
[2018-09-12] MEDS: FERROUS GLUCONATE 324 MG TAB PO (09:34)
[2018-09-12] MEDS: CETIRIZINE (ZyrTEC) 10 MG TAB PO (09:34)
[2018-09-12 11:38] LABS: BEDSIDE GLUCOSE 369 MG/DL (70-105)
[2018-09-12] MEDS: PATIROMER SORBITEX CALCIUM 8.4 GM POWDER PACKET (VELTASSA) PO (13:59)
[2018-09-12 16:30] LABS: BEDSIDE GLUCOSE 188 MG/DL (70-105)
[2018-09-12 19:06] LABS: ANION GAP 9 MEQ/L (8-16); BLOOD UREA NITROGEN 48 MG/DL (7-18); CALCIUM LEVEL 8.5 MG/DL (8.5-10.1); CARBON DIOXIDE LEVEL 22 MEQ/L (21-32); CHLORIDE LEVEL 109 MEQ/L (98-107); GLOMERULAR FILTRATION RATE 21.1 (>58); GLUCOSE, FASTING 208 MG/DL (70-100); POTASSIUM SERUM 4.9 MEQ/L (3.5-5.1); SODIUM LEVEL 140 MEQ/L (136-145)
[2018-09-12 20:18] LABS: BEDSIDE GLUCOSE 233 MG/DL (70-105)
[2018-09-12] MEDS: ROSUVASTATIN 10 MG TAB (CRESTOR) PO (21:53)
[2018-09-12] MEDS: EZETIMIBE 10 MG TAB (ZETIA) PO (21:54)
[2018-09-12] MEDS: LEVEMIR (INSULIN DETEMIR) 1 UNITS/0.01ML SC (21:55)
[2018-09-13] MEDS: HEPARIN SOD (PORCINE) 5000 UNITS/ML VIAL SC ×2 (05:29→13:26)
[2018-09-13] MEDS: LEVOTHYROXINE 75MCG TABLET (0.075MG) PO (05:29)
[2018-09-13 06:45] LABS: HEMATOCRIT 29.9 % (36.0-47.0); HEMOGLOBIN 9.9 g/dl (12.0-15.5); MEAN CORPUSCULAR HGB CONC 33.1 g/dl (32.0-36.5); MEAN CORPUSCULAR VOLUME 90.6 fl (80.0-96.0); PLATELET COUNT, AUTOMATED 146 10^3/uL (150-450); RED CELL DISTRIBUTION WIDTH 12.6 % (11.5-14.5); WHITE BLOOD COUNT 5.7 10^3/uL (4.0-10.0)
[2018-09-13 07:19] LABS: ANION GAP 10 MEQ/L (8-16); BLOOD UREA NITROGEN 50 MG/DL (7-18); CALCIUM LEVEL 8.6 MG/DL (8.5-10.1); CARBON DIOXIDE LEVEL 18 MEQ/L (21-32); CHLORIDE LEVEL 107 MEQ/L (98-107); CREATININE FOR GFR 2.67 MG/DL (0.55-1.30); GLOMERULAR FILTRATION RATE 20.5 (>58); GLUCOSE, FASTING 514 MG/DL (70-100); MAGNESIUM LEVEL 1.8 MG/DL (1.8-2.4); POTASSIUM SERUM 5.2 MEQ/L (3.5-5.1); SODIUM LEVEL 135 MEQ/L (136-145)
[2018-09-13] MEDS: HumaLOG INSULIN (NovoLOG) PER UNIT SC ×4 (07:30→17:33)
[2018-09-13] MEDS: carBAMazepine 200 MG TAB PO (08:02)
[2018-09-13] MEDS: CALCITRIOL 0.25 MCG CAP (S0169) PO (08:03)
[2018-09-13] MEDS: PANTOPRAZOLE 40MG TAB (PROTONIX) PO (08:03)
[2018-09-13] MEDS: GABAPENTIN 300 MG CAP PO (08:03)
[2018-09-13] MEDS: CitaloPRAM (CeleXA) 20 MG TAB PO (08:04)
[2018-09-13] MEDS: CARVedilol 12.5 MG TAB PO (08:04)
[2018-09-13] MEDS: ASPIRIN ENTERIC 325 MG TAB PO (08:04)
[2018-09-13] MEDS: CETIRIZINE (ZyrTEC) 10 MG TAB PO (08:04)
[2018-09-13] MEDS: FERROUS GLUCONATE 324 MG TAB PO (08:05)
[2018-09-13] MEDS: CLOPIDOGREL 75 MG TAB PO (08:05)
[2018-09-13 11:38] LABS: BEDSIDE GLUCOSE 299 MG/DL (70-105)
[2018-09-13 16:26] LABS: BEDSIDE GLUCOSE 244 MG/DL (70-105)
[2018-09-13] MEDS: PATIROMER SORBITEX CALCIUM 8.4 GM POWDER PACKET (VELTASSA) PO (17:33)
== END 2018-09-13 18:16 | disposition home or self-care (01) | DRG 638 ==
LOC: M ED INP 09-11 01:22 → M MS4PR 09-11 16:36 → M ED 17:00
DX: E10.10 Type 1 diabetes mellitus with ketoacidosis without coma (principal); N18.4 Chronic kidney disease, stage 4 (severe); E10.65 Type 1 diabetes mellitus with hyperglycemia; E87.5 Hyperkalemia; I16.0 Hypertensive urgency; E10.22 Type 1 diabetes mellitus with diabetic chronic kidney disease; D50.9 Iron deficiency anemia, unspecified; E66.9 Obesity, unspecified; E10.43 Type 1 diabetes mellitus with diabetic autonomic (poly)neuropathy; E86.0 Dehydration; I12.9 Hypertensive chronic kidney disease with stage 1 through stage 4 chronic kidney disease, or unspecified chronic kidney disease; E03.9 Hypothyroidism, unspecified; M19.90 Unspecified osteoarthritis, unspecified site; G47.33 Obstructive sleep apnea (adult) (pediatric); D69.6 Thrombocytopenia, unspecified; F41.9 Anxiety disorder, unspecified; M54.5 Low back pain; E10.21 Type 1 diabetes mellitus with diabetic nephropathy; K31.84 Gastroparesis; Z79.82 Long term (current) use of aspirin; Z79.4 Long term (current) use of insulin; Z87.891 Personal history of nicotine dependence; Z86.73 Personal history of transient ischemic attack (TIA), and cerebral infarction without residual deficits; Z79.899 Other long term (current) drug therapy; Z68.34 Body mass index [BMI] 34.0-34.9, adult

== ENCOUNTER 2018-10-22 12:41 | Inpatient (IN) | payer MEDICARE, MEDICAID ==
[2018-10-22 13:43] LABS: BEDSIDE GLUCOSE 326 MG/DL (70-105)
[2018-10-22 14:24] LABS: BASO % 0.6 % (0.0-1.0); EOS # 0.1 10^3/uL (0.0-0.50); EOS % 1.1 % (0.0-3.0); HEMATOCRIT 34.9 % (36.0-47.0); HEMOGLOBIN 11.7 g/dl (12.0-15.5); IMMATURE GRANULOCYTE % 0.2 % (0-3.0); LYMPH # 1.1 10^3/uL (1.5-4.5); LYMPH % 16.6 % (24.0-44.0); MEAN CORPUSCULAR HEMOGLOBIN 29.8 pg (27.0-33.0); MEAN CORPUSCULAR HGB CONC 33.5 g/dl (32.0-36.5); MEAN CORPUSCULAR VOLUME 88.8 fl (80.0-96.0); MONO # 0.3 10^3/uL (0.0-0.8); NEUTROPHILS % 76.5 % (36.0-66.0); PLATELET COUNT, AUTOMATED 237 10^3/uL (150-450); RED BLOOD COUNT 3.93 10^6/uL (4.00-5.40); WHITE BLOOD COUNT 6.6 10^3/uL (4.0-10.0)
[2018-10-22] MEDS: NS 1,000 ML IV ×2 (14:30→22:36)
[2018-10-22] MEDS: ONDANSETRON 4MG/2ML VIAL (J2405) IV ×3 (14:31→23:31)
[2018-10-22 14:36] LABS: INR 1.06
[2018-10-22 14:37] LABS: PARTIAL THROMBOPLASTIN TIME 28.4 SECONDS (25.4-37.6)
[2018-10-22] MEDS: ACETAMINOPHEN TAB 650MG DOSE (2X325MG) PO (14:45)
[2018-10-22] MEDS: HumuLIN R (REGULAR) INSULIN (NovoLIN R) **100U/ML** PER UNIT SC (14:48)
[2018-10-22 14:53] LABS: ALBUMIN 3.8 GM/DL (3.2-5.2); ALBUMIN/GLOBULIN RATIO 0.84 (1.00-1.93); ALKALINE PHOSPHATASE 140 U/L (45-117); ALT/SGPT 49 U/L (12-78); AMYLASE 61 U/L (25-115); ANION GAP 6 MEQ/L (8-16); AST/SGOT 33 U/L (7-37); BILIRUBIN,DIRECT 0.1 MG/DL (0.0-0.2); BILIRUBIN,TOTAL 0.2 MG/DL (0.2-1.0); BLOOD UREA NITROGEN 34 MG/DL (7-18); CALCIUM LEVEL 9.3 MG/DL (8.5-10.1); CARBON DIOXIDE LEVEL 27 MEQ/L (21-32); CHLORIDE LEVEL 108 MEQ/L (98-107); CK-MB VALUE MASS < 1.0 NG/ML (<3.6); CPK CREATINE PHOSPHOKINASE 75 U/L (26-192); GLOMERULAR FILTRATION RATE 23.1 (>58); GLUCOSE, FASTING 296 MG/DL (70-100); LIPASE 208 U/L (73-393); MB/CK RELATIVE INDEX 1.33 (< OR =4); POTASSIUM SERUM 4.8 MEQ/L (3.5-5.1); SODIUM LEVEL 141 MEQ/L (136-145); TOTAL PROTEIN 8.3 GM/DL (6.4-8.2); TROPONIN I < 0.02 NG/ML (< 0.10)
[2018-10-22 14:55] LABS: LACTIC ACID SEPSIS PROTOCOL 2.1 MMOL/L (0.4-2.0)
[2018-10-22 14:58] LABS: CONTROL LINE HCG INT CTR LINE PRESENT; HCG, SERUM QUALITATIVE NEGATIVE (NEGATIVE)
[2018-10-22] MEDS: GASTROGRAFIN SOLUTION 30ML PO ×2 (15:23→15:48)
[2018-10-22 16:53] LABS: KETONE, URINE AUTO RFX TRACE mg/dL (NEGATIVE); LEUKOCYTE ESTERASE UR AUTO RFX NEGATIVE (NEGATIVE); MUCUS, URINE RFX SMALL (NEGATIVE); NITRITE, URINE AUTO RFX NEGATIVE (NEGATIVE); RBC, URINE AUTO RFX 1 /HPF (0-3); SPECIFIC GRAVITY UR AUTO RFX 1.013 (1.002-1.035); SQUAM EPITHELIAL CELL UR AURFX 0 /HPF (0-6); WBC, URINE AUTO RFX 2 /HPF (0-3)
[2018-10-22] MEDS: METOCLOPRAMIDE INJ 10MG/2ML VIAL (J2765) IV ×2 (17:17→22:36)
[2018-10-22] MEDS ORDERED: HumuLIN R (REGULAR) INSULIN (NovoLIN R) **100U/ML** PER UNIT SC (17:31)
[2018-10-22 17:43] LABS: BEDSIDE GLUCOSE 226 MG/DL (70-105)
[2018-10-22] MEDS: CARVedilol 12.5 MG TAB PO (17:50)
[2018-10-22] MEDS: HumaLOG INSULIN (NovoLOG) PER UNIT SC (21:00)
[2018-10-22] MEDS ORDERED: DEXTROSE 50% 50 ML SYRINGE IV (21:15)
[2018-10-22] MEDS ORDERED: GLUCOSE 4 GM CHEW TABLET PO (21:15)
[2018-10-22] MEDS ORDERED: ONDANSETRON 4 MG TAB (S0181) PO (21:15)
[2018-10-22] MEDS ORDERED: GLUCAGON FOR INJ 1 MG VIAL (J1610) SC (21:15)
[2018-10-22 22:21] LABS: BEDSIDE GLUCOSE 224 MG/DL (70-105)
[2018-10-23] MEDS: ONDANSETRON 4MG/2ML VIAL (J2405) IV ×5 (03:07→21:55)
[2018-10-23] MEDS: METOCLOPRAMIDE INJ 10MG/2ML VIAL (J2765) IV ×3 (05:28→21:55)
[2018-10-23 06:59] LABS: BASO % 0.3 % (0.0-1.0); EOS # 0.1 10^3/uL (0.0-0.50); EOS % 0.9 % (0.0-3.0); HEMATOCRIT 31.4 % (36.0-47.0); HEMOGLOBIN 10.3 g/dl (12.0-15.5); IMMATURE GRANULOCYTE % 0.3 % (0-3.0); LYMPH # 1.2 10^3/uL (1.5-4.5); LYMPH % 12.8 % (24.0-44.0); MEAN CORPUSCULAR HEMOGLOBIN 30.1 pg (27.0-33.0); MEAN CORPUSCULAR HGB CONC 32.8 g/dl (32.0-36.5); MEAN CORPUSCULAR VOLUME 91.8 fl (80.0-96.0); MONO # 0.4 10^3/uL (0.0-0.8); MONO % 4.4 % (0.0-5.0); NEUTROPHILS # 7.5 10^3/uL (1.8-7.7); NEUTROPHILS % 81.3 % (36.0-66.0); PLATELET COUNT, AUTOMATED 206 10^3/uL (150-450); RED BLOOD COUNT 3.42 10^6/uL (4.00-5.40); RED CELL DISTRIBUTION WIDTH 13.2 % (11.5-14.5); WHITE BLOOD COUNT 9.3 10^3/uL (4.0-10.0)
[2018-10-23 07:25] LABS: ANION GAP 11 MEQ/L (8-16); BLOOD UREA NITROGEN 32 MG/DL (7-18); CALCIUM LEVEL 8.5 MG/DL (8.5-10.1); CARBON DIOXIDE LEVEL 20 MEQ/L (21-32); CHLORIDE LEVEL 110 MEQ/L (98-107); CREATININE FOR GFR 2.33 MG/DL (0.55-1.30); GLOMERULAR FILTRATION RATE 23.9 (>58); GLUCOSE, FASTING 467 MG/DL (70-100); POTASSIUM SERUM 4.5 MEQ/L (3.5-5.1); SODIUM LEVEL 141 MEQ/L (136-145)
[2018-10-23] MEDS: HumaLOG INSULIN (NovoLOG) PER UNIT SC ×4 (08:11→21:00)
[2018-10-23] MEDS: NS 1,000 ML IV ×3 (08:13→18:59)
[2018-10-23] MEDS: HEPARIN SOD (PORCINE) 5000 UNITS/ML VIAL SQ ×2 (08:13→21:56)
[2018-10-23] MEDS ORDERED: LR 1,000 ML IV (09:00)
[2018-10-23] MEDS: CLOPIDOGREL 75 MG TAB PO (10:06)
[2018-10-23] MEDS: ASPIRIN 325 MG TAB PO (10:06)
[2018-10-23] MEDS: GABAPENTIN 300 MG CAP PO ×2 (10:06→21:55)
[2018-10-23] MEDS: ACETAMINOPHEN TAB 650MG DOSE (2X325MG) PO (10:07)
[2018-10-23] MEDS: LISINOPRIL 5 MG TAB PO ×2 (10:09→21:54)
[2018-10-23] MEDS: CARVedilol 12.5 MG TAB PO ×2 (10:10→21:55)
[2018-10-23] MEDS: LEVOTHYROXINE 75MCG TABLET (0.075MG) PO (10:23)
[2018-10-23 12:08] LABS: BEDSIDE GLUCOSE 272 MG/DL (70-105)
[2018-10-23 16:24] LABS: BEDSIDE GLUCOSE 146 MG/DL (70-105)
[2018-10-23 20:36] LABS: BEDSIDE GLUCOSE 89 MG/DL (70-105)
[2018-10-23] MEDS: ROSUVASTATIN 10 MG TAB (CRESTOR) PO (21:52)
[2018-10-23] MEDS: CitaloPRAM (CeleXA) 20 MG TAB PO (21:55)
[2018-10-24] MEDS: ONDANSETRON 4MG/2ML VIAL (J2405) IV ×4 (00:19→12:31)
[2018-10-24] MEDS: NS 1,000 ML IV (04:35)
[2018-10-24] MEDS: LEVOTHYROXINE 75MCG TABLET (0.075MG) PO (05:41)
[2018-10-24] MEDS: METOCLOPRAMIDE INJ 10MG/2ML VIAL (J2765) IV (05:41)
[2018-10-24 06:21] LABS: BASO % 0.4 % (0.0-1.0); EOS # 0.2 10^3/uL (0.0-0.50); EOS % 3.7 % (0.0-3.0); HEMATOCRIT 27.3 % (36.0-47.0); HEMOGLOBIN 8.8 g/dl (12.0-15.5); IMMATURE GRANULOCYTE % 0.5 % (0-3.0); LYMPH # 1.4 10^3/uL (1.5-4.5); LYMPH % 24.7 % (24.0-44.0); MEAN CORPUSCULAR HEMOGLOBIN 30.4 pg (27.0-33.0); MEAN CORPUSCULAR HGB CONC 32.2 g/dl (32.0-36.5); MEAN CORPUSCULAR VOLUME 94.5 fl (80.0-96.0); MONO # 0.4 10^3/uL (0.0-0.8); MONO % 6.7 % (0.0-5.0); NEUTROPHILS # 3.6 10^3/uL (1.8-7.7); PLATELET COUNT, AUTOMATED 155 10^3/uL (150-450); RED BLOOD COUNT 2.89 10^6/uL (4.00-5.40); RED CELL DISTRIBUTION WIDTH 13.2 % (11.5-14.5); WHITE BLOOD COUNT 5.6 10^3/uL (4.0-10.0)
[2018-10-24 06:43] LABS: ANION GAP 9 MEQ/L (8-16); BLOOD UREA NITROGEN 21 MG/DL (7-18); CALCIUM LEVEL 7.5 MG/DL (8.5-10.1); CARBON DIOXIDE LEVEL 21 MEQ/L (21-32); CHLORIDE LEVEL 111 MEQ/L (98-107); CREATININE FOR GFR 2.12 MG/DL (0.55-1.30); GLOMERULAR FILTRATION RATE 26.7 (>58); GLUCOSE, FASTING 329 MG/DL (70-100); POTASSIUM SERUM 4.2 MEQ/L (3.5-5.1); SODIUM LEVEL 141 MEQ/L (136-145)
[2018-10-24] MEDS: HumaLOG INSULIN (NovoLOG) PER UNIT SC ×2 (08:09→12:31)
[2018-10-24] MEDS: ASPIRIN 325 MG TAB PO (08:10)
[2018-10-24] MEDS: HEPARIN SOD (PORCINE) 5000 UNITS/ML VIAL SQ (08:10)
[2018-10-24] MEDS: GABAPENTIN 300 MG CAP PO (08:10)
[2018-10-24] MEDS: CLOPIDOGREL 75 MG TAB PO (08:10)
[2018-10-24] MEDS: CARVedilol 12.5 MG TAB PO (08:12)
[2018-10-24] MEDS: LISINOPRIL 5 MG TAB PO (08:13)
[2018-10-24 11:30] LABS: BEDSIDE GLUCOSE 300 MG/DL (70-105)
== END 2018-10-24 15:58 | disposition home or self-care (01) | DRG 74 ==
LOC: M ED 12:41 → M ED INP 20:34 → M MS5PR 22:21
DX: E10.43 Type 1 diabetes mellitus with diabetic autonomic (poly)neuropathy (principal); E66.9 Obesity, unspecified; E10.22 Type 1 diabetes mellitus with diabetic chronic kidney disease; K31.84 Gastroparesis; N18.3 Chronic kidney disease, stage 3 (moderate); M19.90 Unspecified osteoarthritis, unspecified site; G47.33 Obstructive sleep apnea (adult) (pediatric); F41.9 Anxiety disorder, unspecified; D50.9 Iron deficiency anemia, unspecified; F32.9 Major depressive disorder, single episode, unspecified; I12.9 Hypertensive chronic kidney disease with stage 1 through stage 4 chronic kidney disease, or unspecified chronic kidney disease; E03.9 Hypothyroidism, unspecified; Z79.82 Long term (current) use of aspirin; Z79.4 Long term (current) use of insulin; Z79.899 Other long term (current) drug therapy; Z87.891 Personal history of nicotine dependence; Z86.73 Personal history of transient ischemic attack (TIA), and cerebral infarction without residual deficits; Z68.33 Body mass index [BMI] 33.0-33.9, adult

== ENCOUNTER 2018-11-06 12:28 | Emergency (ER) | payer MEDICARE, MEDICAID ==
[~2018-11-06] VITALS: Ht 157.5 cm; Wt 81.8 kg
[2018-11-06 12:28] VITALS: BP 140/69
[~2018-11-06 12:28] MED LIST changes: +/ACET5TA PO; +/AMLO25TA PO; +/INSUREG SC; +/LABE20TA OR; +/ONDA4TA PO; +/PANT40TA PO; +/PREG100CA PO; +ACET500C PO; +ACET65TA OR; -ACETAMINOPHEN 325 MG TAB PO; +AMLO10TAB PO; +AMMO12LO TOP; +ANTI12.5 PO; +ASPI1TAB20 PO; +ASPI325T PO; +ASPI325T25 PO; +ASPI81TA45 OR; +ASPI81TA7 PO; +ASPI81TA85 PO; +ATEN100T PO; +ATEN25TA OR; +ATEN50TA2 PO; +ATOR80TA59 PO; +AUGM875T27 PO; +BACT800T OR; +BACT800T5 PO; +BIRTH CONTROL PO; +CARB10TACH PO; +CARB1TAB20 PO; +CARB20TA PO; +CARD240C5 PO; +CARV12.5 PO; +CARV25TA PO; +CARV6.25 PO; +CELE10TA PO; +CETI10TA PO; +CETI5TA PO; +CILO0.3S OU; +CIPR-250 PO; +CIPR25SS OR; +CIPR500T89 PO; +CITA20TA4 PO; +CITRPOW2 PO; +CLON0.2T PO; +CLON0.5T PO; +CLON0.5T8 PO; +CLONI1TA PO; +CLOP75TA2 PO; +COLA50CA PO; +CRES40TA PO; +CYMB60CA3 PO; +CYMBALTA PO; +DEPA250T3 OR; +DILT60TA PO; +DOXY100C PO; +DULO1CAP2 PO; +DULO1CAP3 PO; +DULO30CA PO; +ESCI10TA2 PO; +EZET10TA PO; +FERR325T16 PO; +FEXO180T58 PO; +FIORICET OR; +FISH1000 PO; +FLEXERIL PO; +FLOXIN OTIC0.3 % OT; +FOLI5CAP OR; +FURO20TA2 PO; +FURO40TA2 PO; +GABA-843 PO; +GABA600T4 PO; +GERITAB9 PO; +GLUC1INJ IJ; +GLUC1INJ2 IM; +GLUC1KIT; +GLUC1KIT SC; +HUMA100I3 SC; +HUMALOG SC; +HYDR-2808 PO; +HYDR-3911 PO; +HYDR100T PO; +HYDR10TAB PO; +HYDR25TA6 OR; +HYDR50TA7 PO; +IMIT100T OR; +IMIT100T PO; +INSUH10VL SC; +INSUHUMDS SC; +INSULADS SC; +INSULANT SC; +IRON CR PO; +KEFL500C17 PO; +KLON0.5T PO; +LANTINJ4 SC; +LEVA250T13 PO; +LEVO100T5 PO; +LEVO200T3 PO; +LEVO250T PO; +LEVO25TA5 PO; +LEVO25TABR PO; +LEVO50TA45 PO; +LEVO75TA4 PO; +LEXA1TAB PO; +LISI-542 PO; +LISI10TA4 OR; +LISI10TA4 PO; +LISI40TA OR; +LISI40TAB PO; +LOPR50TA PO; +LUTERA PO; +LYRI150C OR; +LYRI150C PO; +LYRI75CA OR; +MAGN64TASA PO; +MECL-68 PO; +MECL12.575 PO; +MECLAZINE; +METO10TA2 OR; +METO10TA2 PO; +METO5TAB2 OR; +MILKSUS5 PO; +MIRA0.5T PO; +NEUR300C PO; +NEUR600T PO; +NORCOTAB PO; +NORV5TAB PO; +NOVOINJ3 SC; +OMEP40CA2 PO; +ONDA4TAB6 PO; +PANT40TA3 PO; +PERC5TAB12 PO; +PERC7.5T8 PO; -PHENYLEPHRINE HCL 10 % OPHTH. SOL 5ML OS; +PLAV1TAB2 PO; +PLAV75TA2 OR; +PRAL1INJ SC; +PRAL1INJ2; +PRAL1INJ2 INJ; +PRAM0.5T4 PO; +PRAM0.5T7 PO; +PRAV40TA PO; +PRED10TA PO; +PRIL20CA9 PO; -PROPARACAINE 0.5% OPHTH SOL 15ML OS; +PROT1TAB2 PO; +PT COMMENT; +Pramipexole PO; +REGL10TA6 PO; +REGL5TAB2 PO; +ROCA0.25 PO; +ROSU40TA3 PO; +SENO8.6T5 PO; +SILV1CRE60 TOP; +SIMV20TA2 OR; +SUCR1SS PO; +SUMA100T2 PO; +SYNT75TA PO; +TENO50TA PO; +TESS100C PO; +TRAZ-160; +TRAZ-160 PO; +TRAZO50TA PO; +TRIA1CR TOP; +TYLE325T5 PO; +TYLE650T30 PO; +UNIT1TAB PO; +VITA50005 PO; +VITAMIN C PO; +ZEST20TA8 PO; +ZOCO20TA PO; +ZOFR4SOL PO; +ZOFR4TAB14 PO; +ZOFR4TAB16 PO; +ZYRT10CA5 PO; +[UNRECOGNIZED DRUG - CODE] OU; +[UNRECOGNIZED DRUG - CODE] TOP; +[UNRECOGNIZED DRUG - OTHER]; +[UNRECOGNIZED DRUG - OTHER] PO; +[UNRECOGNIZED DRUG - OTHER] PO; +humalog SC; +novolog SC
== END 2018-11-06 15:11 | disposition left against medical advice (07) ==
LOC: M ED 12:28
DX: Z53.29 Procedure and treatment not carried out because of patient's decision for other reasons (principal)